=== PATIENT | male | born 1945 | race Caucasian/White ===

== ENCOUNTER 2020-08-03 11:45 | Emergency (ER) | payer MEDICARE, OTHER, SELFPAY ==
[2020-08-03] VITALS (7 sets, daily range): BP systolic 134–165; BP diastolic 58–82; PULSE 50–84; RESP 13–20; TEMP 36.1–36.8; O2SAT 96–100
--- NOTE | ~2020-08-03 | XR_ITS ---
EXAMINATION: XR chest 2V 08/03/2020 12:27 INDICATION: Chest pain. Controlled hypertension. PROCEDURE: PA and lateral views of the chest COMPARISON: Comparison to multiple prior studies sequentially, with oldest reviewed study dated 12/14. FINDINGS: The lungs are clear. The cardiomediastinal silhouette is within normal limits. There are no pleural effusions. There is no pneumothorax suspected. IMPRESSION: 1: NO ACUTE CARDIOPULMONARY DISEASE. Reviewed, dictated and finalized at location A. [employer]
--- NOTE | 2020-08-03 11:53 | ECG_ITS ---
Measurements Intervals [place] Rate: 65 P: 38 SD: 181 QRS: -40 QRSD: 98 T: 31 QT: 427 QTc: 445 Interpretive Statements SINUS RHYTHM ATRIAL AND VENTRICULAR PREMATURE COMPLEXES LEFT AXIS DEVIATION CONSIDER INFERIOR INFARCT, AGE INDETERMINATE BASELINE ARTIFACT- I, II, III, AVR ABNORMAL ECG Electronically Signed On 08-03-2020 16:32:08 GRADE RECORDER by Benitez Gallego D.O.
[2020-08-03 12:10] LABS: Basophils Absolute Auto 0.1 K/mm3 (0.0-0.1); Eosinophils Absolute Auto 0.2 K/mm3 (0-0.3); Hematocrit 39.8 % (42.0-52.0); Hemoglobin 13.1 g/dL (14.0-18.0); Immature Granulocyte Absolute 0.03 K/mm3 (0.00-0.031); Immature Granulocyte Percent A 0.4 % (0-0.5); Lymphocytes Absolute Auto 1.63 K/mm3 (0.9-3.2); Lymphocytes Percent Auto 24.1 % (18.3-44.2); Mean Corpuscular HGB Conc 32.9 g/dl (32-36); Mean Corpuscular Hemoglobin 32.3 pg (26-34); Mean Platelet Volume 12.1 fl (7.4-10.4); Monocytes Absolute Auto 0.7 K/mm3 (0.1-0.6); Neutrophils Absolute Auto 4.1 K/mm3 (1.3-6.7); Neutrophils Percent Auto 60.5 % (45.5-73.1); Platelet Count Result 175 k/mm3 (150-375); Red Blood Count 4.06 M/mm3 (4.6-6.20); Red Cell Distribution Width 12.7 % (11.5-14.5); White Blood Count 6.8 K/mm3 (4.5-10.0)
--- NOTE | 2020-08-03 12:13 | ED.CHESTPAIN ---
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 Denies any sob, abd pain, n/v, diaphoresis, fever or chills. 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 Patient states he had a stress test done last year and it was normal. Related Data Home Medications Medication Instructions Recorded Confirmed Amitiza 24 mcg PO BID 08/03/19 08/03/19 Toujeo SoloStar U-300 Insulin 36 unit SUBCUT HS 08/03/19 08/03/19 amlodipine 10 mg PO DAILY 08/03/19 08/03/19 atorvastatin 40 mg PO HS 08/03/19 08/03/19 escitalopram oxalate [Lexapro] 10 mg PO DAILY 08/03/19 08/03/19 insulin aspart U-100 [Novolog 5 unit SUBCUT QACBREAK 08/03/19 08/03/19 Flexpen U-100 Insulin] insulin aspart U-100 [Novolog 6 unit SUBCUT QACLUNCH 08/03/19 08/03/19 Flexpen U-100 Insulin] insulin aspart U-100 [Novolog 7 unit SUBCUT QACDINNER 08/03/19 08/03/19 Flexpen U-100 Insulin] Allergies Allergy/AdvReac Type Severity Reaction Status Date / Time oxycodone Allergy Mild Rash Verified 08/03/20 11:59 tasneem Allergy Swelling Verified 08/03/20 11:59 of Lip/Tongue/Throat Review of Systems Review of Systems: All systems reviewed & are unremarkable except as noted in HPI and below Constitutional: Constitutional: Denies body ache(s), Denies chills, Denies excessive sweating, Denies fatigue, Denies fever(s), Denies headache(s), Denies lethargy, Denies malaise, Denies weakness and Denies weight loss Eyes: Eyes: Denies blurry vision, Denies change in vision and Denies loss of vision ENT: Denies dizziness, Denies ear discharge, Denies headache(s), Denies lip swelling, Denies epistaxis, Denies nasal congestion, Denies neck pain, Denies throat swelling and Denies tongue swelling Cardiovascular: Cardiovascular: Denies diaphoresis, Denies rapid heart rate, Denies edema, Denies irregular heart rhythm, Denies lightheadedness, Denies palpitations, Denies dyspnea and Denies dyspnea on exertion Respiratory: Respiratory: Denies chest congestion, Denies cough, Denies hemoptysis, Denies dyspnea and Denies dyspnea on exertion Gastrointestinal: Gastrointestinal: Denies abdominal pain, Denies melena, Denies hematochezia, Denies diarrhea, Denies nausea, Denies vomiting and Denies hematemesis Musculoskeletal: Musculoskeletal: Denies abnormal gait, Denies deformity, Denies joint swelling, Denies limited range of motion, Denies neck pain and Denies numbness Neurologic: Denies Abnormal speech present, Denies abnormal gait, Denies confusion, Denies dizziness, Denies headache(s), Denies focal weakness, Denies loss of vision, Denies numbness, Denies Other visual disturbances, Denies Sensory deficit (Neuro) and Denies weakness Psychiatric: Psychiatric: Denies confusion, Denies depression, Denies auditory hallucinations, Denies homicidal ideation and Denies suicidal ideation Endocrine: Endocrine: Denies cold intolerance, Denies excessive sweating, Denies fatigue, Denies heat intolerance and Denies palpitations Hematologic/Lymphatic: Hematologic/Lymphatic: Denies easy bleeding and Denies easy bruising Allergic/Immunologic: Allergic/Immunologic: Denies lip swelling, Denies throat swelling and Denies tongue swelling PMFSH Past Medical History Medical History (Updated 08/03/20 @ 15:37 by Shubham Palacio MD) Anemia Anxiety Bronchitis Dementia With history of evaluation by a neurologist. Symptoms since 2018 Diabetes DVT (deep venous thrombosis) Right lower extremity with associated pulmonary embolism in 2014 Erectile dysfunction GERD (gastroesophageal reflux disease) HTN (hypertension) Hyperlipidemia
[2020-08-03 12:20] LABS: INR 0.9; Prothrombin Time 12.7 Seconds (11.1-14.7)
[2020-08-03 12:21] LABS: Partial Thromboplastin Time 28.1 SECONDS (22.3-36.8)
[2020-08-03 12:22] LABS: Anion Gap 5 mmol/L (8-16); Blood Urea Nitrogen 33 mg/dL (9-20); Calcium 8.9 mg/dL (8.4-10.2); Carbon Dioxide 25 mmol/L (22-30); Chloride 110 mmol/L (98-107); Estimated CRCL calculation 41 ml/min; Estimated Glomerular Filt Rate 43; Glucose 217 mg/dL (75-110); Potassium 4.8 mmol/L (3.4-5.0); Sodium 140 mmol/L (137-145)
[2020-08-03 12:34] LABS: Troponin I 0.014 ng/mL (0.000-0.034)
[2020-08-03] MEDS: ASPIRIN 81 MG CHEWABLE TABLET 324 MG PO (12:40)
[2020-08-03 15:01] LABS: Troponin I < 0.012 ng/mL (0.000-0.034)
== END 2020-08-03 15:55 | disposition home or self-care (01) ==
PROVIDERS: Emergency Medicine; Emergency Provider Emergency Medicine
DX: R07.89 Other chest pain (principal); F03.90 Unspecified dementia, unspecified severity, without behavioral disturbance, psychotic disturbance, mood disturbance, and anxiety; E11.22 Type 2 diabetes mellitus with diabetic chronic kidney disease; I12.9 Hypertensive chronic kidney disease with stage 1 through stage 4 chronic kidney disease, or unspecified chronic kidney disease; N18.30 Chronic kidney disease, stage 3 unspecified; E11.319 Type 2 diabetes mellitus with unspecified diabetic retinopathy without macular edema; K21.9 Gastro-esophageal reflux disease without esophagitis; K58.9 Irritable bowel syndrome, unspecified; F41.9 Anxiety disorder, unspecified; Z86.711 Personal history of pulmonary embolism; Z86.718 Personal history of other venous thrombosis and embolism; Z79.4 Long term (current) use of insulin; Z98.42 Cataract extraction status, left eye; Z98.41 Cataract extraction status, right eye; I49.1 Atrial premature depolarization; I49.3 Ventricular premature depolarization; R94.31 Abnormal electrocardiogram [ECG] [EKG]
CPT/HCPCS: 36415; 71046; 80048; 84484; 85025; 85610; 85730; 93005; 99284; A9270

== ENCOUNTER 2021-01-20 12:53 | Outpatient (CLI) | payer MEDICARE, OTHER, SELFPAY ==
--- NOTE | ~2021-01-20 | US_ITS ---
EXAMINATION: US carotid duplex BI DATE: 01/20/2021 14:19 INDICATION: Syncope. TECHNIQUE: Grayscale, color Doppler, and pulsed Doppler images of the cervical carotid arteries were obtained. The degree of vessel stenosis is placed in one of the following categories: normal, <50%, 5 0-69%, >=70% but less than near-occlusion, near-occlusion, or total occlusion. Note that percent sten osis relative to normal distal artery lumen diameter is indirectly measured from velocity measurement s as described by Inder, et al. Radiology 2003; 229:340-346. COMPARISON: Ultrasound 10/24/2008 FINDINGS: RIGHT: The right common carotid artery (CCA) peak systolic velocity (PSV) is 108 cm/s. The right internal ca rotid artery (ICA) PSV is 74 cm/s. The right ICA end-diastolic velocity (EDV) is 10 cm/s. The right I CA/CCA PSV ratio is 0.7. Grayscale and color Doppler images yield an estimate of <50% diameter reduct ion from plaque in the ICA. There is antegrade flow in the right vertebral artery. LEFT: The left CCA PSV is 114 cm/s. The left ICA PSV is 85 cm/s. The left ICA EDV is 11 cm/s. The left ICA/ CCA PSV ratio is 0.7. Grayscale and color Doppler images yield an estimate of <50% diameter reduction from plaque in the ICA. There is antegrade flow in the left vertebral artery. IMPRESSION: 1. <50% stenosis in the right internal carotid artery. 2. <50% stenosis in the left internal carotid artery. Reviewed, dictated and finalized at location A.
--- NOTE | ~2021-01-20 | MR_ITS ---
EXAMINATION: MRA brain wo con DATE: 01/20/2021 14:16 INDICATION: Syncope and collapse. TECHNIQUE: Magnetic resonance angiography (MRA) of the brain was performed without intravenous contra st with T1-weighted SPGR by the 3D [id number] technique. Maximum intensity projection 3D-reconstr uctions were obtained. COMPARISON: Brain MRI 01/28/2016, head CT 08/03/2019 FINDINGS: The vertebral arteries are codominant. There is no significant stenosis of basilar artery or the post erior cerebral arteries. Right P1 posterior cerebral artery segment is small, a normal variant. The p osterior communicating arteries are normal. There is no significant stenosis of the intracranial inte rnal carotid arteries or anterior or middle cerebral arteries. Anterior communicating artery is [place]. There is no aneurysm. IMPRESSION: 1. No aneurysm or significant arterial stenosis. Reviewed, dictated and finalized at location A.
== END 2021-01-20 12:54 | disposition home or self-care (01) ==
LOC: ANHIMG 12:59
PROVIDERS: PCP Emergency Medicine; Visit Provider Emergency Medicine
DX: R55 Syncope and collapse (principal); I65.23 Occlusion and stenosis of bilateral carotid arteries
CPT/HCPCS: 70544; 93880

== ENCOUNTER 2021-03-04 06:53 | Day surgery (SDC) | payer MEDICARE, OTHER, SELFPAY ==
[2021-02-19 13:12] VITALS: BMI 22.1
[2021-03-04 07:50] VITALS: BP 95/58; PULSE 61; RESP 18; TEMP 35.9; O2SAT 99; BMI 22.4
--- NOTE | 2021-03-04 07:53 | WPDANESEPPF ---
Anes - Initial Pre Proc Eval Procedure: Operation Date: 03/04/21 08:30 Proposed Procedures p Esophagogastroduodenoscopy & Colonoscopy - Umesh Golden MD Date/Time: 03/04/21 07:53 Surgeon: Umesh Golden MD Pre Op Diagnosis: weightloss, frank's esophagus Patient Data Age: 75 Gender: M Height: 1.83 m Weight: 74.9 kg Last Vital Signs Temp 35.9 C L 03/04/21 07:50 Pulse 61 03/04/21 07:50 Resp 18 03/04/21 07:50 BP 95/58 L 03/04/21 07:50 Pulse Ox 99 03/04/21 07:50 Allergies Allergy/AdvReac Type Severity Reaction Status Date / Time oxycodone Allergy Mild Rash Verified 03/04/21 07:48 tasneem Allergy Swelling Verified 03/04/21 07:48 of Lip/Tongue/Throat Home Medications Medication Instructions Recorded Confirmed Type Toujeo SoloStar U-300 Insulin 32 unit SUBCUT HS 08/03/19 03/04/21 History amlodipine 10 mg PO DAILY 08/03/19 03/04/21 History atorvastatin 40 mg PO HS 08/03/19 03/04/21 History escitalopram oxalate [Lexapro] 20 mg PO DAILY 08/03/19 03/04/21 History insulin aspart U-100 [Novolog 5 unit SUBCUT QACBREAK 08/03/19 03/04/21 History Flexpen U-100 Insulin] insulin aspart U-100 [Novolog 6 unit SUBCUT QACLUNCH 08/03/19 03/04/21 History Flexpen U-100 Insulin] insulin aspart U-100 [Novolog 7 unit SUBCUT QACDINNER 08/03/19 03/04/21 History Flexpen U-100 Insulin] lubiprostone [Amitiza] 24 mcg PO BID 08/03/19 03/04/21 History pantoprazole 40 mg PO DAILY 02/19/21 03/04/21 History patiromer calcium sorbitex 8.4 g PO DAILY 02/19/21 03/04/21 History Patient hx anesthesia problems: none Family hx anesthesia problems: none PMFSH Past Medical History Medical History Anemia Anxiety Bronchitis Dementia With history of evaluation by a neurologist. Symptoms since 2018 Diabetes DVT (deep venous thrombosis) Right lower extremity with associated pulmonary embolism in 2013 Erectile dysfunction GERD (gastroesophageal reflux disease) HTN (hypertension) Hyperlipidemia IBS (irritable bowel syndrome) Pulmonary embolism 2014 Retinopathy diabetic Stage 3 chronic kidney disease Surgical History Surgical History H/O bilateral cataract extraction H/O left wrist surgery 1996 H/O repair of left rotator cuff History of surgical procedure on eye proper using laser For diabetic retinopathy Family History Family History Sibling Family history of obesity Father Depression Hypertension Hearing loss Seizure disorder Acute myocardial infarction Late onset coronary artery disease Mother Hypertension Cerebrovascular accident Congestive heart failure Social History Social History Social History: 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 He lives in [place] with his . He occasionally will drink beer but only in moderation. He is a lifelong nonsmoker. He has 3 dogs at home. [place] about once per week. Primary care physician: [facility] Code status: Full code per EMR Smoking status: Never smoker Second hand tobacco smoke exposure: No Alcohol intake: never Drinks per week: 1 Substance use: never Substance use type: does not use Living arrangements: with family Gender identity (if verbalized by the patient): Male Spiritual care concerns: No Anes - Eval Final PreProcedure Day of Procedure 03/04/21 07:53 Patient weight: normal Heart: regular rate and rhythm Lungs: clear to auscultation Airway: Mallampati scale class II Neurological: alert and oriented Last oral intake: >/= 8 hours ASA classification: III Emergent: no Anesthetic plan: proceed Anesthesia type and monitoring: general GIVS and standard monitorin
[2021-03-04] MEDS: LACTATED RINGERS 1,000 ML 150 ML IV CONT (08:18)
--- NOTE | 2021-03-04 08:24 | PM.HPGS ---
History of Present Illness History of Present Illness Consent: Risks, benefits, and alternatives have been discussed and questions answered. Patient agrees to proceed with procedure. 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 Review of Systems Constitutional: Constitutional: Denies headache(s) and Denies weakness Eyes: Eyes: Denies blurry vision ENT: Reports Normal hearing present, Denies headache(s) and Denies neck pain Cardiovascular: Cardiovascular: Denies chest pain and Denies dyspnea Respiratory: Respiratory: Denies dyspnea Gastrointestinal: Gastrointestinal: Reports no additional gastrointestinal complaints Genitourinary: Genitourinary: Denies dysuria Musculoskeletal: Musculoskeletal: Denies neck pain Integumentary/Breasts: Skin/Breast: Denies dry skin Neurologic: Reports Normal hearing present, Denies headache(s) and Denies weakness Psychiatric: Psychiatric: Denies anxiety Endocrine: Endocrine: Denies change in body appearance Hematologic/Lymphatic: Hematologic/Lymphatic: Denies easy bleeding Allergic/Immunologic: Allergic/Immunologic: Denies urticaria PMFSH Past Medical History Medical History (Updated 03/04/21 @ 08:25 by Umesh Golden MD) Anemia Anxiety Frank esophagus Bronchitis Colon cancer screening Dementia With history of evaluation by a neurologist. Symptoms since 2018 Diabetes DVT (deep venous thrombosis) Right lower extremity with associated pulmonary embolism in 2013 Erectile dysfunction GERD (gastroesophageal reflux disease) HTN (hypertension) Hyperlipidemia IBS (irritable bowel syndrome) Pulmonary embolism 2013 Retinopathy diabetic Stage 3 chronic kidney disease Surgical History Surgical History H/O bilateral cataract extraction H/O left wrist surgery 1996 H/O repair of left rotator cuff History of surgical procedure on eye proper using laser For diabetic retinopathy Family History Family History Sibling Family history of obesity Father Depression Hypertension Hearing loss Seizure disorder Acute myocardial infarction Late onset coronary artery disease Mother Hypertension Cerebrovascular accident Congestive heart failure Social History Social History Social History: 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 He lives in [place] with his . He occasionally will drink beer but only in moderation. He is a lifelong nonsmoker. He has 3 dogs at home. [place] and [place] about once per week. Primary care physician: [facility] Code status: Full code per EMR Smoking status: Never smoker Second hand tobacco smoke exposure: No Alcohol intake: never Drinks per week: 1 Substance use: never Substance use type: does not use Living arrangements: with family Gender identity (if verbalized by the patient): Male Spiritual care concerns: No Meds Home Medications and Allergies Home Medications Medication Instructions Recorded Confirmed Type Toujeo SoloStar U-300 Insulin 32 unit SUBCUT HS 08/03/19 03/04/21 History amlodipine 10 mg PO DAILY 08/03/19 03/04/21 History atorvastatin 40 mg PO HS 08/03/19 03/04/21 History escitalopram oxalate [Lexapro] 20 mg PO DAILY 08/03/19 03/04/21 History insulin aspart U-100 [Novolog 5 unit SUBCUT QACBREAK 08/03/19 03/04/21 History Flexpen U-100 Insulin] insulin aspart U-100 [Novolog 6 unit SUBCUT QACLUNCH 08/03/19 03/04/21 History Flexpen U-100 Insulin] insulin aspart U-100 [Novolog 7 unit SUBCUT QACDINNER 08/03/19 03/04/21 History Flexpen U-100 Insulin] lubiprostone [Amitiza
--- NOTE | 2021-03-04 08:40 | SUR.OPER ---
EGD ENDED 835 COLON STARTED 839
[2021-03-04 09:01] VITALS: BP 85/38; PULSE 47; RESP 12; O2SAT 99
[2021-03-04 09:11] VITALS: BP 101/45; PULSE 51; RESP 17; O2SAT 99
[2021-03-04 09:21] VITALS: BP 122/72; PULSE 59; RESP 16; O2SAT 99
--- NOTE | 2021-03-04 10:01 | SUR.PHASEII ---
prior to discharge. Blood glucose 139mg/dl per pt's dexacom.
== END 2021-03-04 09:41 | disposition home or self-care (01) ==
PROVIDERS: PCP Emergency Medicine; Visit Provider Internal Medicine Gastroenterology
PROC: 0DJ08ZZ Inspection of Upper Intestinal Tract, Via Natural or Artificial Opening Endoscopic (ICD-10-PCS; CPT 43235; principal; 2021-03-04 08:30)
DX: Z12.11 Encounter for screening for malignant neoplasm of colon (principal); K63.5 Polyp of colon; K22.70 Barrett's esophagus without dysplasia; K21.00 Gastro-esophageal reflux disease with esophagitis, without bleeding; Z79.4 Long term (current) use of insulin; F03.90 Unspecified dementia, unspecified severity, without behavioral disturbance, psychotic disturbance, mood disturbance, and anxiety; E78.5 Hyperlipidemia, unspecified; D64.9 Anemia, unspecified; F41.9 Anxiety disorder, unspecified; K58.9 Irritable bowel syndrome, unspecified; I12.9 Hypertensive chronic kidney disease with stage 1 through stage 4 chronic kidney disease, or unspecified chronic kidney disease; N18.30 Chronic kidney disease, stage 3 unspecified; E11.22 Type 2 diabetes mellitus with diabetic chronic kidney disease; E11.319 Type 2 diabetes mellitus with unspecified diabetic retinopathy without macular edema
CPT/HCPCS: 45385; 43239; 88305; J2704; J7120

== ENCOUNTER 2022-01-05 16:24 | Emergency (ER) | payer MEDICARE, OTHER, SELFPAY ==
--- NOTE | ~2022-01-05 | XR_ITS ---
EXAMINATION: XR chest 1V portable Exam Date/Time: 01/05/2022 17:00 CDT HISTORY: covid+,WEAKNESS,CONFUSION,HIGH BLOOD SUGAR,HX DVT,PE Comparison: 08/03/2020. RESULT: Lines, tubes, and devices: None. Lungs and pleura: Low volumes and crowding. Cardiomediastinal silhouette: Stable cardiomediastinal silhouette. Other: No acute osseous or upper abdominal finding. IMPRESSION: No acute cardiopulmonary process. Reviewed, dictated and finalized at location K.
[2022-01-05 16:23] VITALS: BP 141/72; PULSE 58; RESP 18; TEMP 37.1; O2SAT 97
[2022-01-05 16:30] VITALS: PULSE 54
[2022-01-05 16:32] VITALS: BP 140/64; PULSE 53; RESP 14
[2022-01-05 16:32] LABS: Glucose Point of Care 162 mg/dl (65-105)
--- NOTE | 2022-01-05 16:39 | ED.GENADULT ---
HPI - General Adult General Chief complaint: Weakness Stated complaint: weakness, fever Time Seen by Provider: 01/05/22 16:27 History of Present Illness HPI narrative: sent in by b/c worried abut him due to kidney stage 3 disease potassium issues alzheimers and then took a covid test today b/c wouldn't get up for golf game today which he's very active and normally never misses this and little less active last night mild fever 100.4 today home test positive, no eating minimal fluids today and in bed all day. at wedding recently familly sick from that covid positive. covid and flu vaccine no booster b/c after vaccine speech and walking issues so concerned from the vaccine Related Data Home Medications Medication Instructions Recorded Confirmed amlodipine 10 mg tablet 10 mg PO DAILY 08/03/19 03/04/21 atorvastatin 40 mg tablet 40 mg PO HS 08/03/19 03/04/21 escitalopram oxalate 10 mg tablet 10 mg PO DAILY 08/03/19 03/04/21 (Lexapro) insulin aspart U-100 100 unit/mL 5 unit subcut QACBREAK 08/03/19 03/04/21 (3 mL) subcutaneous pen (Novolog Flexpen U-100 Insulin aspart) insulin aspart U-100 100 unit/mL 6 unit subcut QACLUNCH 08/03/19 03/04/21 (3 mL) subcutaneous pen (Novolog Flexpen U-100 Insulin aspart) insulin aspart U-100 100 unit/mL 7 unit subcut QACDINNER 08/03/19 03/04/21 (3 mL) subcutaneous pen (Novolog Flexpen U-100 Insulin aspart) insulin glargine U-300 conc 300 32 unit subcut HS 08/03/19 03/04/21 unit/mL (1.5 mL) subcutaneous pen (Toujeo SoloStar U-300 Insulin) lubiprostone 24 mcg capsule 24 mcg PO BID 08/03/19 03/04/21 (Amitiza) pantoprazole 40 mg tablet,delayed 40 mg PO DAILY 02/19/21 03/04/21 release patiromer calcium sorbitex 8.4 8.4 g PO DAILY 02/19/21 03/04/21 gram oral powder packet donepezil 5 mg tablet tablet 01/05/22 fluticasone propionate 50 ea intranasal 01/05/22 mcg/actuation nasal spray,suspension Allergies Allergy/AdvReac Type Severity Reaction Status Date / Time oxycodone Allergy Mild Rash Verified 03/04/21 07:48 tasneem Allergy Swelling Verified 03/04/21 07:48 of Lip/Tongue/Throat PMFSH Past Medical History Medical History (Updated 01/05/22 @ 18:17 by Shira Wagner MD) Anemia Anxiety Stewart esophagus Bronchitis Colon cancer screening Dementia With history of evaluation by a neurologist. Symptoms since 2017 Diabetes DVT (deep venous thrombosis) Right lower extremity with associated pulmonary embolism in 2013 Erectile dysfunction GERD (gastroesophageal reflux disease) HTN (hypertension) Hyperlipidemia IBS (irritable bowel syndrome) Pulmonary embolism 2013 Retinopathy diabetic Stage 3 chronic kidney disease Surgical History Surgical History H/O bilateral cataract extraction H/O left wrist surgery 1996 H/O repair of left rotator cuff History of surgical procedure on eye proper using laser For diabetic retinopathy Family History Family History Sibling Family history of obesity Father Depression Hypertension Hearing loss Seizure disorder Acute myocardial infarction Late onset coronary artery disease Mother Hypertension Cerebrovascular accident Congestive heart failure Social History Social History Social History: 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 He lives in [place] with his . He occasionally will drink beer but only in moderation. He is a lifelong nonsmoker. He has 3 dogs at home. [place] and [place] about once per week. Primary care physician: [facility] Code status: Full code per EMR Smoking status: Never smoker Second hand tobacco smoke exposure: No Alcohol intake: never Drinks per week: 1 Substance use: never Substance use type: does
[2022-01-05] MEDS: SODIUM CHLORIDE 0.9% IV 1,000 ML 150 ML IV CONT (16:55)
[2022-01-05 17:32] VITALS: BP 155/62; PULSE 55; RESP 18
[2022-01-05 17:41] LABS: Basophils Absolute Auto 0.1 K/mm3 (0.0-0.1); Basophils Percent Auto 1.1 % (0.2-1.2); Eosinophils Absolute Auto 0.1 K/mm3 (0-0.3); Eosinophils Percent Auto 1.4 % (0-4.4); Hematocrit 34.3 % (42.0-52.0); Hemoglobin 11.5 g/dL (14.0-18.0); Immature Granulocyte Absolute 0.01 K/mm3 (0.00-0.031); Immature Granulocyte Percent A 0.2 % (0-0.5); Immature Platelet Fraction Pct 5.1 % (0.9-11.2); Lymphocytes Absolute Auto 0.73 K/mm3 (0.9-3.2); Lymphocytes Percent Auto 16.8 % (18.3-44.2); Mean Corpuscular HGB Conc 33.5 g/dl (32-36); Mean Corpuscular Volume 98.3 fl (80-100); Mean Platelet Volume 11.4 fl (7.4-10.4); Monocytes Absolute Auto 1.1 K/mm3 (0.1-0.6); Monocytes Percent Auto 26.2 % (2.6-8.5); Neutrophils Absolute Auto 2.4 K/mm3 (1.3-6.7); Neutrophils Percent Auto 54.3 % (45.5-73.1); Platelet Count Result 137 k/mm3 (150-375); Red Blood Count 3.49 M/mm3 (4.6-6.20); Red Cell Distribution Width 12.5 % (11.5-14.5); White Blood Count 4.4 K/mm3 (4.5-10.0)
[2022-01-05 17:50] LABS: Influenza A QL RT-PCR Negative (Negative); Influenza B QL RT-PCR Negative (Negative); SARS-CoV-2 RNA PCR Positive
[2022-01-05 17:57] LABS: Alanine Aminotransferase 19 U/L (6-50); Albumin Level 3.5 g/dL (3.5-5.1); Alkaline Phosphatase 87 U/L (38-126); Anion Gap 3 mmol/L (8-16); Aspartate Amino Transferase 24 U/L (17-59); Bilirubin,Total 0.7 mg/dL (0.2-1.3); Blood Urea Nitrogen 33 mg/dL (9-20); Carbon Dioxide 24 mmol/L (22-30); Chloride 109 mmol/L (98-107); Estimated CRCL calculation 33 ml/min; Estimated Glomerular Filt Rate 37; Glucose 176 mg/dL (65-110); Magnesium 1.6 mg/dL (1.6-2.3); Potassium 4.8 mmol/L (3.4-5.0); Sodium 136 mmol/L (137-145)
[2022-01-05 18:29] LABS: Appearance Urine Clear (Clear); Bilirubin Urine Negative (Negative); Blood Urine 1+ (Negative); Color Urine Yellow (Yellow); Glucose Urine UA Trace mg/dL (Negative); Ketones Urine Negative (Negative); Leukocyte Esterase Ur Negative LEU/UL (Negative); Nitrate Urine Negative (Negative); Protein Urine 2+ mg/dL (Negative); Specific Grav Ur 1.015 (1.001-1.035); Urobilinogen Urine 0.2 mg/dL (<2.0); pH Urine 5.5 (5.0-9.0)
[2022-01-05 18:50] LABS: Add Urine Microscopic? YES; RBC Urine 0-2 /hpf (0-2); Squamous Epithelial Cell Urine Rare /hpf (Few); WBC Urine 0-3 /hpf
[2022-01-05 19:10] VITALS: BP 154/70; PULSE 60; RESP 16; O2SAT 97
[2022-01-05 19:14] VITALS: BP 157/59
== END 2022-01-05 19:10 | disposition home or self-care (01) ==
PROVIDERS: Emergency Provider Emergency Medicine; PCP Emergency Medicine
DX: U07.1 COVID-19 (principal); E11.22 Type 2 diabetes mellitus with diabetic chronic kidney disease; I12.9 Hypertensive chronic kidney disease with stage 1 through stage 4 chronic kidney disease, or unspecified chronic kidney disease; N18.30 Chronic kidney disease, stage 3 unspecified; E11.319 Type 2 diabetes mellitus with unspecified diabetic retinopathy without macular edema; D64.9 Anemia, unspecified; G30.9 Alzheimer's disease, unspecified; F02.80 Dementia in other diseases classified elsewhere, unspecified severity, without behavioral disturbance, psychotic disturbance, mood disturbance, and anxiety; E78.5 Hyperlipidemia, unspecified; K21.9 Gastro-esophageal reflux disease without esophagitis; K58.9 Irritable bowel syndrome, unspecified; Z86.718 Personal history of other venous thrombosis and embolism; Z86.711 Personal history of pulmonary embolism; Z79.4 Long term (current) use of insulin
CPT/HCPCS: 36415; 71045; 80053; 81001; 82948; 83735; 85025; 85055; 87502; 96360; 96361; 99283; C9803; J7030; U0003; U0005

== ENCOUNTER 2022-01-07 10:14 | Outpatient (RCR) | payer MEDICARE, OTHER, SELFPAY ==
[2022-01-07 12:34] VITALS: BP 137/64; PULSE 48; RESP 20; TEMP 36.2; O2SAT 99
[2022-01-07] MEDS: ACETAMINOPHEN 325 MG TABLET 650 MG PO (12:37)
[2022-01-07] MEDS: diphenhydrAMINE HCl CAP 25 MG CAPSULE PO (12:37)
[2022-01-07] MEDS: FAMOTIDINE 20 MG TABLET PO (12:37)
[2022-01-07] MEDS: BEBTELOVIMAB 175 MG/2 ML VIAL IV PUSH (12:56)
[2022-01-07 13:40] VITALS: BP 123/60; PULSE 60; O2SAT 100
== END 2022-01-07 16:00 ==
LOC: AMCINF 10:14
PROVIDERS: Referring Provider Emergency Medicine; Visit Provider Internal Medicine Hematology & Oncology
DX: U07.1 COVID-19 (principal); I12.9 Hypertensive chronic kidney disease with stage 1 through stage 4 chronic kidney disease, or unspecified chronic kidney disease; N18.9 Chronic kidney disease, unspecified; E11.22 Type 2 diabetes mellitus with diabetic chronic kidney disease
CPT/HCPCS: A9270; M0222; Q0222

== ENCOUNTER 2022-09-10 14:30 | Emergency (ER) | payer MEDICARE, OTHER, SELFPAY ==
[2022-09-10 14:40] VITALS: BP 149/70; PULSE 59; RESP 16; TEMP 36.6; O2SAT 100
--- NOTE | 2022-09-10 14:40 | ED.URI ---
HPI - URI/Sore Throat General Chief Complaint: Upper Respiratory Infection Stated Complaint: COUGH/CONGESTION Time Seen by Provider: 09/10/22 14:40 Source: patient, family, RN notes reviewed and old records reviewed Mode of arrival: ambulatory Limitations: no limitations History of Present Illness HPI Narrative: 76 year old male accompanied by with complaints of patient having cold symptoms on Tuesday which has resolved except for productive cough with expectoration of thick white mucous for the past 3 days. states that patient has not had fevers. She states that they did home Covid test which was negative. Patient reports no pain, denies any shortness of breath with respirations even and nonlabored no tachypnea noted with SAO2 100% on room air. Patient does have dementia and cares fo him at home.She has been giving him some Robitussin cough syrup. MD elicited complaint: cough (productive) and rhinorrhea Onset (ago): day(s) (3) Able to tolerate fluids by mouth: Yes Treatments prior to arrival: other (Robitussin and some nasal saline swabs) Related Data Home Medications Medication Instructions Recorded Confirmed amlodipine 10 mg tablet 10 mg PO DAILY 08/03/19 09/10/22 atorvastatin 40 mg tablet 40 mg PO HS 08/03/19 09/10/22 escitalopram oxalate 10 mg tablet 10 mg PO DAILY 08/03/19 09/10/22 (Lexapro) insulin aspart U-100 100 unit/mL 5 unit subcut QACBREAK 08/03/19 09/10/22 (3 mL) subcutaneous pen (Novolog FlexPen U-100 Insulin aspart) insulin aspart U-100 100 unit/mL 6 unit subcut QACLUNCH 08/03/19 09/10/22 (3 mL) subcutaneous pen (Novolog FlexPen U-100 Insulin aspart) insulin aspart U-100 100 unit/mL 7 unit subcut QACDINNER 08/03/19 09/10/22 (3 mL) subcutaneous pen (Novolog FlexPen U-100 Insulin aspart) insulin glargine U-300 conc 300 32 unit subcut HS 08/03/19 09/10/22 unit/mL (1.5 mL) subcutaneous pen (Toujeo SoloStar U-300 Insulin) pantoprazole 40 mg tablet,delayed 40 mg PO DAILY 02/19/21 09/10/22 release Allergies Allergy/AdvReac Type Severity Reaction Status Date / Time oxycodone Allergy Mild Rash Verified 01/07/22 12:35 tasneem Allergy Swelling Verified 01/07/22 12:35 of Lip/Tongue/Throat Review of Systems Review of Systems: CONSTITUTIONAL: Denies malaise, chills, sweats, or fever. EYES: Denies visual changes, redness, or discharge. ENT: Reports some rhinorrhea, congestion, no sinus pain, otalgia or sore throat. CARDIOVASCULAR: Denies chest pain, palpitations, or edema. RESPIRATORY: Reports productive cough.? Denies dyspnea. GASTROINTESTINAL: Denies abdominal pain, nausea, vomiting, diarrhea SKIN: Denies rash or itching. MUSCULOSKELETAL: Denies myalgia. NEUROLOGIC: Denies headache. All systems reviewed & are unremarkable except as noted in HPI and below PMFSH Past Medical History Medical History Anemia Anxiety Stewart esophagus Bronchitis Colon cancer screening Dementia With history of evaluation by a neurologist. Symptoms since 2018 Diabetes DVT (deep venous thrombosis) Right lower extremity with associated pulmonary embolism in 2013 Erectile dysfunction GERD (gastroesophageal reflux disease) HTN (hypertension) Hyperlipidemia IBS (irritable bowel syndrome) Pulmonary embolism 2014 Retinopathy diabetic Stage 3 chronic kidney disease Surgical History Surgical History H/O bilateral cataract extraction H/O left wrist surgery 1996 H/O repair of left rotator cuff History of surgical procedure on eye proper using laser For diabetic retinopathy Family History Family History Sibling Family history of obesity Father Depression Hypertension Hearing loss Seizure disorder Acute myocardial infarction Late onset coronary artery disease Mother Hypertension
[2022-09-10 14:41] VITALS: BP 149/70; PULSE 59; RESP 16; TEMP 36.6; O2SAT 100
== END 2022-09-10 15:00 | disposition home or self-care (01) ==
PROVIDERS: Emergency Provider Registered Nurse; PCP Emergency Medicine
DX: J06.9 Acute upper respiratory infection, unspecified (principal); K21.9 Gastro-esophageal reflux disease without esophagitis; E78.5 Hyperlipidemia, unspecified; I12.9 Hypertensive chronic kidney disease with stage 1 through stage 4 chronic kidney disease, or unspecified chronic kidney disease; E11.22 Type 2 diabetes mellitus with diabetic chronic kidney disease; N18.30 Chronic kidney disease, stage 3 unspecified; Z79.4 Long term (current) use of insulin; K22.70 Barrett's esophagus without dysplasia; F03.90 Unspecified dementia, unspecified severity, without behavioral disturbance, psychotic disturbance, mood disturbance, and anxiety; Z86.718 Personal history of other venous thrombosis and embolism; Z86.711 Personal history of pulmonary embolism; E11.319 Type 2 diabetes mellitus with unspecified diabetic retinopathy without macular edema; Z98.42 Cataract extraction status, left eye; Z98.41 Cataract extraction status, right eye; F41.9 Anxiety disorder, unspecified
CPT/HCPCS: 99213; G0463

== ENCOUNTER 2023-02-05 12:18 | Emergency (ER) | payer MEDICARE, OTHER, SELFPAY ==
--- NOTE | ~2023-02-05 | XR_ITS ---
XR finger 1st RT min 2V DATE: 02/05/2023 12:48 INDICATION: Thumb laceration TECHNIQUE: 3 views COMPARISON: None FINDINGS: No soft tissue bandage material overlies the right first digit. No radiopaque soft tissue f oreign body or obvious subcutaneous emphysema is noted. No fracture, dislocation, periosteal reaction or bone destruction is detected. First metatarsal artery calcification, suggesting diabetes. 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 IMPRESSION: No fracture or dislocation or apparent radiopaque foreign body of the right first digit First metatarsal artery calcifications suggesting diabetes Reviewed, dictated and finalized at location A. IMPRESSION: No fracture or dislocation or apparent radiopaque foreign body of t he right first digit First metatarsal artery calcifications suggesting diabetes
[2023-02-05 12:27] VITALS: BP 130/72; PULSE 59; RESP 18; TEMP 36.6; O2SAT 100
--- NOTE | 2023-02-05 13:19 | ED.GENADULT ---
HPI - General Adult General Chief complaint: Wound/Laceration Stated complaint: thumb lac Time Seen by Provider: 02/05/23 12:36 History of Present Illness HPI narrative: 77-year-old male with history of dementia presented to the emergency department for evaluation of lacerations to his right thumb. Patient suspects that he was trying to get something in the mailbox and cut his thumb. Patient's tetanus is not up-to-date. Patient denies any other pain or injury. Related Data Home Medications Medication Instructions Recorded Confirmed amlodipine 10 mg tablet 10 mg PO DAILY 08/03/19 09/10/22 atorvastatin 40 mg tablet 40 mg PO HS 08/03/19 09/10/22 escitalopram oxalate 10 mg tablet 10 mg PO DAILY 08/03/19 09/10/22 (Lexapro) insulin aspart U-100 100 unit/mL 5 unit subcut QACBREAK 08/03/19 09/10/22 (3 mL) subcutaneous pen (Novolog FlexPen U-100 Insulin aspart) insulin aspart U-100 100 unit/mL 6 unit subcut QACLUNCH 08/03/19 09/10/22 (3 mL) subcutaneous pen (Novolog FlexPen U-100 Insulin aspart) insulin aspart U-100 100 unit/mL 7 unit subcut QACDINNER 08/03/19 09/10/22 (3 mL) subcutaneous pen (Novolog FlexPen U-100 Insulin aspart) insulin glargine U-300 conc 300 32 unit subcut HS 08/03/19 09/10/22 unit/mL (1.5 mL) subcutaneous pen (Toujeo SoloStar U-300 Insulin) pantoprazole 40 mg tablet,delayed 40 mg PO DAILY 02/19/21 09/10/22 release Allergies Allergy/AdvReac Type Severity Reaction Status Date / Time oxycodone Allergy Mild Rash Verified 02/05/23 12:47 tasneem Allergy Swelling Verified 02/05/23 12:47 of Lip/Tongue/Throat Review of Systems Review of Systems: All systems reviewed & are unremarkable except as noted in HPI and below PMFSH Past Medical History Medical History Anemia Anxiety Stewart esophagus Bronchitis Colon cancer screening Dementia With history of evaluation by a neurologist. Symptoms since 2018 Diabetes DVT (deep venous thrombosis) Right lower extremity with associated pulmonary embolism in 2014 Erectile dysfunction GERD (gastroesophageal reflux disease) HTN (hypertension) Hyperlipidemia IBS (irritable bowel syndrome) Pulmonary embolism 2014 Retinopathy diabetic Stage 3 chronic kidney disease Surgical History Surgical History H/O bilateral cataract extraction H/O left wrist surgery 1996 H/O repair of left rotator cuff History of surgical procedure on eye proper using laser For diabetic retinopathy Family History Family History Sibling Family history of obesity Father Depression Hypertension Hearing loss Seizure disorder Acute myocardial infarction Late onset coronary artery disease Mother Hypertension Cerebrovascular accident Congestive heart failure Social History Social History Social History: 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 He lives in [place] with his . He occasionally will drink beer but only in moderation. He is a lifelong nonsmoker. He has 3 dogs at home. [place] and [place] about once per week. Primary care physician: [facility] Code status: Full code per EMR Smoking status: Never smoker Second hand tobacco smoke exposure: No Alcohol intake: never Drinks per week: 1 Substance use: never Substance use type: does not use Living arrangements: with family Gender identity (if verbalized by the patient): Male Spiritual care concerns: No Exam Narrative: CONSTITUTIONAL: Denies fever, chills, or sweats. EYES: Denies visual changes, redness, or discharge. ENT: Denies rhinorrhea, congestion, sore throat, or otalgia. CARDIOVASCULAR: Denies chest pain, palpitations, or edema. RESPIRATORY: De
[2023-02-05] MEDS: TETANUS,DIPHTHERIA,AC PERTUSSIS ADULT (0.5 ML) BOOSTRIX IM (13:29)
[2023-02-05 13:32] VITALS: PULSE 57; RESP 17; O2SAT 99
== END 2023-02-05 13:33 | disposition home or self-care (01) ==
PROVIDERS: Emergency Provider Emergency Medicine; PCP Emergency Medicine
DX: S61.011A Laceration without foreign body of right thumb without damage to nail, initial encounter (principal); F03.90 Unspecified dementia, unspecified severity, without behavioral disturbance, psychotic disturbance, mood disturbance, and anxiety; E78.5 Hyperlipidemia, unspecified; I12.9 Hypertensive chronic kidney disease with stage 1 through stage 4 chronic kidney disease, or unspecified chronic kidney disease; E11.22 Type 2 diabetes mellitus with diabetic chronic kidney disease; N18.30 Chronic kidney disease, stage 3 unspecified; Z23 Encounter for immunization; W26.8XXA Contact with other sharp object(s), not elsewhere classified, initial encounter
CPT/HCPCS: 12001; 73140; 90471; 90715; 99283

== ENCOUNTER 2023-03-31 21:07 | Emergency (ER) | payer MEDICARE, OTHER, SELFPAY ==
[2023-03-31] VITALS (8 sets, daily range): BP systolic 166–182; BP diastolic 66–146; PULSE 54–91; RESP 14–20; TEMP 36.6; O2SAT 95–100
[2023-03-31 21:21] LABS: Glucose Point of Care 395 mg/dl (65-105)
--- NOTE | 2023-03-31 22:26 | ECG_ITS ---
Measurements Intervals [place] Rate: 55 P: 67 MO: 237 QRS: -37 QRSD: 90 T: 1 QT: 441 QTc: 422 Interpretive Statements SINUS BRADYCARDIA WITH FIRST DEGREE AV BLOCK LEFT AXIS DEVIATION BORDERLINE R WAVE PROGRESSION, ANTERIOR LEADS BORDERLINE T WAVE ABNORMALITY- INFERIOR LEADS BASELINE ARTIFACT- V4-V6 BORDERLINE ECG COMPARED TO ECG 08/03/2020 11:52:39 SINUS BRADYCARDIA NOW PRESENT FIRST DEGREE AV BLOCK NOW PRESENT Electronically Signed On 04-01-2023 6:58:07 CDT by Benitez Gallego D.O.
[2023-03-31] MEDS: SODIUM CHLORIDE 0.9% IV 2,000 ML 999 ML IV CONT (22:35)
[2023-03-31 22:47] LABS: Basophils Absolute Auto 0.1 K/mm3 (0.0-0.1); Basophils Percent Auto 1.3 % (0.2-1.2); Eosinophils Absolute Auto 0.3 K/mm3 (0-0.3); Eosinophils Percent Auto 3.9 % (0-4.4); Hematocrit 31.6 % (42.0-52.0); Hemoglobin 10.6 g/dL (14.0-18.0); Immature Granulocyte Absolute 0.01 K/mm3 (0.00-0.031); Immature Granulocyte Percent A 0.2 % (0-0.5); Lymphocytes Absolute Auto 1.49 K/mm3 (0.9-3.2); Lymphocytes Percent Auto 23.5 % (18.3-44.2); Mean Corpuscular HGB Conc 33.5 g/dl (32-36); Mean Corpuscular Hemoglobin 32.5 pg (26-34); Mean Corpuscular Volume 96.9 fl (80-100); Mean Platelet Volume 12.1 fl (7.4-10.4); Monocytes Absolute Auto 0.8 K/mm3 (0.1-0.6); Monocytes Percent Auto 13.2 % (2.6-8.5); Neutrophils Absolute Auto 3.7 K/mm3 (1.3-6.7); Neutrophils Percent Auto 57.9 % (45.5-73.1); Platelet Count Result 125 k/mm3 (150-375); Red Blood Count 3.26 M/mm3 (4.6-6.20); Red Cell Distribution Width 12.7 % (11.5-14.5); White Blood Count 6.4 K/mm3 (4.5-10.0)
[2023-03-31 22:51] LABS: Appearance Urine Clear (Clear); Bacteria Urine None Seen /hpf; Bilirubin Urine Negative (Negative); Blood Urine Negative (Negative); Color Urine Yellow (Yellow); Glucose Urine UA 3+ mg/dL (Negative); Ketones Urine Negative (Negative); Leukocyte Esterase Ur Negative LEU/UL (Negative); Nitrate Urine Negative (Negative); Non Pathogenic Casts 0-2; Protein Urine Trace mg/dL (Negative); RBC Urine 0-2 /hpf (0-2); Specific Grav Ur 1.017 (1.001-1.035); Squamous Epithelial Cell Urine None seen /hpf (Few); Urobilinogen Urine 0.2 mg/dL (<2.0); WBC Urine 0-5 /hpf; pH Urine 5.5 (5.0-9.0)
[2023-03-31 22:53] LABS: Add Urine Microscopic? YES
[2023-03-31 23:01] LABS: Anion Gap 9 mmol/L (8-16); Blood Urea Nitrogen 38 mg/dL (9-20); Calcium 8.9 mg/dL (8.4-10.2); Carbon Dioxide 25 mmol/L (22-30); Chloride 103 mmol/L (98-107); Estimated CRCL calculation 35 ml/min; Estimated Glomerular Filt Rate 37; Glucose 325 mg/dL (65-110); Potassium 4.3 mmol/L (3.4-5.0); Sodium 137 mmol/L (137-145)
[2023-04-01 00:20] LABS: Glucose Point of Care 266 mg/dl (65-105)
--- NOTE | 2023-04-01 01:29 | ED.GENADULT ---
HPI - General Adult General Chief complaint: Recheck/Abnormal Lab/Rx Stated complaint: elevated glucose Time Seen by Provider: 03/31/23 21:48 History of Present Illness HPI narrative: this is a 77-year-old dementia patient presenting with elevated glucose. Patient went out with his son for a day of golf. While he was out he had [employer] [place] a. He did not take his insulin. When he got back to the halfway the glucometer read high. He was then sent to the emergency department. Patient has no complaints this time. Related Data Home Medications Medication Instructions Recorded Confirmed amlodipine 10 mg tablet 10 mg PO DAILY 08/03/19 09/10/22 atorvastatin 40 mg tablet 40 mg PO HS 08/03/19 09/10/22 escitalopram oxalate 10 mg tablet 10 mg PO DAILY 08/03/19 09/10/22 (Lexapro) insulin aspart U-100 100 unit/mL 5 unit subcut QACBREAK 08/03/19 09/10/22 (3 mL) subcutaneous pen (Novolog FlexPen U-100 Insulin aspart) insulin aspart U-100 100 unit/mL 6 unit subcut QACLUNCH 08/03/19 09/10/22 (3 mL) subcutaneous pen (Novolog FlexPen U-100 Insulin aspart) insulin aspart U-100 100 unit/mL 7 unit subcut QACDINNER 08/03/19 09/10/22 (3 mL) subcutaneous pen (Novolog FlexPen U-100 Insulin aspart) insulin glargine U-300 conc 300 32 unit subcut HS 08/03/19 09/10/22 unit/mL (1.5 mL) subcutaneous pen (Toujeo SoloStar U-300 Insulin) pantoprazole 40 mg tablet,delayed 40 mg PO DAILY 02/19/21 09/10/22 release Allergies Allergy/AdvReac Type Severity Reaction Status Date / Time oxycodone Allergy Mild Rash Verified 02/05/23 12:47 tasneem Allergy Swelling Verified 02/05/23 12:47 of Lip/Tongue/Throat PMFSH Past Medical History Medical History Anemia Anxiety Stewart esophagus Bronchitis Colon cancer screening Dementia With history of evaluation by a neurologist. Symptoms since 2018 Diabetes DVT (deep venous thrombosis) Right lower extremity with associated pulmonary embolism in 2013 Erectile dysfunction GERD (gastroesophageal reflux disease) HTN (hypertension) Hyperlipidemia IBS (irritable bowel syndrome) Pulmonary embolism 2014 Retinopathy diabetic Stage 3 chronic kidney disease Surgical History Surgical History H/O bilateral cataract extraction H/O left wrist surgery 1996 H/O repair of left rotator cuff History of surgical procedure on eye proper using laser For diabetic retinopathy Family History Family History Sibling Family history of obesity Father Depression Hypertension Hearing loss Seizure disorder Acute myocardial infarction Late onset coronary artery disease Mother Hypertension Cerebrovascular accident Congestive heart failure Social History Social History Social History: 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 He lives in [place] with his . He occasionally will drink beer but only in moderation. He is a lifelong nonsmoker. He has 3 dogs at home. [place] and [place] about once per week. Primary care physician: [facility] Code status: Full code per EMR Smoking status: Never smoker Second hand tobacco smoke exposure: No Alcohol intake: never Drinks per week: 1 Substance use: never Substance use type: does not use Living arrangements: with family Gender identity (if verbalized by the patient): Male Spiritual care concerns: No Exam Narrative: APPEARANCE: No apparent distress. Head: atraumatic. EYES: EOMI, NOSE: Atraumatic NECK: Trachea midline RESPIRATORY: No increased rate of breathing clear to auscultation CARDIOVASCULAR: RRR, ABDOMINAL: Non-distended Soft nontender no guarding or rebound MUSCULOSKELETAl: No obvious deformities
[2023-04-01 04:11] VITALS: BP 168/74; PULSE 56; RESP 16; O2SAT 98
== END 2023-04-01 04:13 ==
PROVIDERS: Emergency Provider Emergency Medicine; PCP Nurse Practitioner Family
DX: E11.65 Type 2 diabetes mellitus with hyperglycemia (principal); I12.9 Hypertensive chronic kidney disease with stage 1 through stage 4 chronic kidney disease, or unspecified chronic kidney disease; E11.22 Type 2 diabetes mellitus with diabetic chronic kidney disease; N18.30 Chronic kidney disease, stage 3 unspecified; E11.319 Type 2 diabetes mellitus with unspecified diabetic retinopathy without macular edema; F03.90 Unspecified dementia, unspecified severity, without behavioral disturbance, psychotic disturbance, mood disturbance, and anxiety; E78.5 Hyperlipidemia, unspecified; D64.9 Anemia, unspecified; K58.9 Irritable bowel syndrome, unspecified; K21.9 Gastro-esophageal reflux disease without esophagitis; K22.70 Barrett's esophagus without dysplasia; F41.9 Anxiety disorder, unspecified; Z86.718 Personal history of other venous thrombosis and embolism; Z86.711 Personal history of pulmonary embolism; Z79.4 Long term (current) use of insulin; Z98.49 Cataract extraction status, unspecified eye; R00.1 Bradycardia, unspecified; I44.0 Atrioventricular block, first degree; R94.31 Abnormal electrocardiogram [ECG] [EKG]
CPT/HCPCS: 36415; 80048; 81001; 82948; 85025; 93005; 96360; 96361; 99283; J7030

== ENCOUNTER 2023-08-20 13:18 | Emergency (ER) | payer MEDICARE, OTHER, SELFPAY ==
[2023-08-20 13:29] VITALS: BP 146/78; PULSE 79; RESP 18; TEMP 37.2; O2SAT 99
[2023-08-20 13:32] LABS: Glucose Point of Care 200 mg/dl (65-105)
[2023-08-20 14:28] LABS: Appearance Urine Clear (Clear); Bacteria Urine None Seen /hpf; Bilirubin Urine Negative (Negative); Blood Urine Negative (Negative); Color Urine Yellow (Yellow); Glucose Urine UA Negative (Negative); Ketones Urine Negative (Negative); Leukocyte Esterase Ur Negative LEU/UL (Negative); Nitrate Urine Negative (Negative); Protein Urine 1+ mg/dL (Negative); RBC Urine 0-2 /hpf (0-2); Squamous Epithelial Cell Urine None seen /hpf (Few); Urobilinogen Urine 0.2 mg/dL (<2.0); WBC Urine 0-5 /hpf
--- NOTE | 2023-08-20 14:33 | ED.GENADULT ---
HPI - General Adult General Chief complaint: Unspecified Stated complaint: agitation Time Seen by Provider: 08/20/23 14:04 History of Present Illness HPI narrative: Patient is a 77-year-old male with a history of dementia presenting with an episode of agitation. He is coming from a nursing facility and was apparently combative. On arrival here, patient is pleasant and cooperative. He states that he was golfing and his was ruining his game so he became angry. He denies any complaints. He states that he feels ?fantastic?. Related Data Home Medications Medication Instructions Recorded Confirmed amlodipine 10 mg tablet 10 mg PO DAILY 08/03/19 09/10/22 atorvastatin 40 mg tablet 40 mg PO HS 08/03/19 09/10/22 escitalopram oxalate 10 mg tablet 10 mg PO DAILY 08/03/19 09/10/22 (Lexapro) insulin aspart U-100 100 unit/mL 5 unit subcut QACBREAK 08/03/19 09/10/22 (3 mL) subcutaneous pen (Novolog FlexPen U-100 Insulin aspart) insulin aspart U-100 100 unit/mL 6 unit subcut QACLUNCH 08/03/19 09/10/22 (3 mL) subcutaneous pen (Novolog FlexPen U-100 Insulin aspart) insulin aspart U-100 100 unit/mL 7 unit subcut QACDINNER 08/03/19 09/10/22 (3 mL) subcutaneous pen (Novolog FlexPen U-100 Insulin aspart) insulin glargine U-300 conc 300 32 unit subcut HS 08/03/19 09/10/22 unit/mL (1.5 mL) subcutaneous pen (Toujeo SoloStar U-300 Insulin) pantoprazole 40 mg tablet,delayed 40 mg PO DAILY 02/19/21 09/10/22 release Allergies Allergy/AdvReac Type Severity Reaction Status Date / Time oxycodone Allergy Mild Rash Verified 02/05/23 12:47 tasneem Allergy Swelling Verified 02/05/23 12:47 of Lip/Tongue/Throat Review of Systems Review of Systems: All systems reviewed & are unremarkable except as noted in HPI and below PMFSH Past Medical History Medical History Anemia Anxiety Stewart esophagus Bronchitis Colon cancer screening Dementia With history of evaluation by a neurologist. Symptoms since 2018 Diabetes DVT (deep venous thrombosis) Right lower extremity with associated pulmonary embolism in 2013 Erectile dysfunction GERD (gastroesophageal reflux disease) HTN (hypertension) Hyperlipidemia IBS (irritable bowel syndrome) Pulmonary embolism 2014 Retinopathy diabetic Stage 3 chronic kidney disease Surgical History Surgical History H/O bilateral cataract extraction H/O left wrist surgery 1996 H/O repair of left rotator cuff History of surgical procedure on eye proper using laser For diabetic retinopathy Family History Family History Sibling Family history of obesity Father Depression Hypertension Hearing loss Seizure disorder Acute myocardial infarction Late onset coronary artery disease Mother Hypertension Cerebrovascular accident Congestive heart failure Social History Social History Social History: 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 He lives in [place] with his . He occasionally will drink beer but only in moderation. He is a lifelong nonsmoker. He has 3 dogs at home. [place] and [place] about once per week. Primary care physician: Code status: Full code per EMR Smoking status: Never smoker Second hand tobacco smoke exposure: No Alcohol intake: never Drinks per week: 1 Substance use: never Substance use type: does not use Living arrangements: with family Gender identity (if verbalized by the patient): Male Spiritual care concerns: No Exam Narrative: GENERAL: Well-appearing, nontoxic, pleasant and cooperative HEAD: Normocephalic, atraumatic. EYES: PERRLA and EOMI. ENT: Mucous membranes moist. NECK: Suppl
[2023-08-20 14:43] LABS: Add Urine Microscopic? YES
== END 2023-08-20 15:04 ==
PROVIDERS: Emergency Provider Emergency Medicine; PCP Nurse Practitioner Family
DX: F03.911 Unspecified dementia, unspecified severity, with agitation (principal); E11.22 Type 2 diabetes mellitus with diabetic chronic kidney disease; I12.9 Hypertensive chronic kidney disease with stage 1 through stage 4 chronic kidney disease, or unspecified chronic kidney disease; N18.30 Chronic kidney disease, stage 3 unspecified; E78.5 Hyperlipidemia, unspecified; E11.319 Type 2 diabetes mellitus with unspecified diabetic retinopathy without macular edema; K21.9 Gastro-esophageal reflux disease without esophagitis; K22.70 Barrett's esophagus without dysplasia; K58.9 Irritable bowel syndrome, unspecified; F41.9 Anxiety disorder, unspecified; Z86.718 Personal history of other venous thrombosis and embolism; Z86.711 Personal history of pulmonary embolism; Z86.2 Personal history of diseases of the blood and blood-forming organs and certain disorders involving the immune mechanism; Z98.49 Cataract extraction status, unspecified eye; Z79.4 Long term (current) use of insulin
CPT/HCPCS: 81001; 82948; 99283

== ENCOUNTER 2023-10-06 14:16 | Emergency (ER) | payer MEDICARE, OTHER, SELFPAY ==
[2023-10-06 14:29] VITALS: BP 123/78; PULSE 64; RESP 18; TEMP 36.7; O2SAT 100
[2023-10-06 15:19] LABS: Appearance Urine Clear (Clear); Bacteria Urine 4+ /hpf; Bilirubin Urine Negative (Negative); Blood Urine 1+ (Negative); Color Urine Yellow (Yellow); Glucose Urine UA Negative (Negative); Ketones Urine Negative (Negative); Leukocyte Esterase Ur 1+ LEU/UL (Negative); Nitrate Urine Negative (Negative); Non Pathogenic Casts 0-2; Protein Urine Negative (Negative); Specific Grav Ur 1.008 (1.001-1.035); Squamous Epithelial Cell Urine None Seen /hpf (Few)
[2023-10-06 15:43] LABS: Add Urine Microscopic? YES
[2023-10-06 17:15] LABS: Glucose Point of Care 103 mg/dl (65-105)
--- NOTE | 2023-10-06 17:32 | ED.MALEGU ---
HPI - Male Genitourinary General Chief complaint: Urogenital-Male Stated complaint: urinary sx Time Seen by Provider: 10/06/23 14:31 History of Present Illness HPI Narrative: Patient is a 78-year-old male who presents ER with with concerns for urinary retention. Patient is having trouble urinating here in the ER and is pointing to his penis area and discomfort. Abraham catheter placed and 1000 mL of urine returned. Patient has profound dementia and cannot provide any history. Related Data Home Medications Medication Instructions Recorded Confirmed amlodipine 10 mg tablet 10 mg PO DAILY 08/03/19 09/10/22 atorvastatin 40 mg tablet 40 mg PO HS 08/03/19 09/10/22 escitalopram oxalate 10 mg tablet 10 mg PO DAILY 08/03/19 09/10/22 (Lexapro) insulin aspart U-100 100 unit/mL 5 unit subcut QACBREAK 08/03/19 09/10/22 (3 mL) subcutaneous pen (Novolog FlexPen U-100 Insulin aspart) insulin aspart U-100 100 unit/mL 6 unit subcut QACLUNCH 08/03/19 09/10/22 (3 mL) subcutaneous pen (Novolog FlexPen U-100 Insulin aspart) insulin aspart U-100 100 unit/mL 7 unit subcut QACDINNER 08/03/19 09/10/22 (3 mL) subcutaneous pen (Novolog FlexPen U-100 Insulin aspart) insulin glargine U-300 conc 300 32 unit subcut HS 08/03/19 09/10/22 unit/mL (1.5 mL) subcutaneous pen (Toujeo SoloStar U-300 Insulin) pantoprazole 40 mg tablet,delayed 40 mg PO DAILY 02/19/21 09/10/22 release Allergies Allergy/AdvReac Type Severity Reaction Status Date / Time oxycodone Allergy Mild Rash Verified 02/05/23 12:47 tasneem Allergy Swelling Verified 02/05/23 12:47 of Lip/Tongue/Throat Review of Systems Review of Systems: ROS unobtainable: Yes unobtainable due to mental status PMFSH Past Medical History Medical History Anemia Anxiety Stewart esophagus Bronchitis Colon cancer screening Dementia With history of evaluation by a neurologist. Symptoms since 2018 Diabetes DVT (deep venous thrombosis) Right lower extremity with associated pulmonary embolism in 2014 Erectile dysfunction GERD (gastroesophageal reflux disease) HTN (hypertension) Hyperlipidemia IBS (irritable bowel syndrome) Pulmonary embolism 2014 Retinopathy diabetic Stage 3 chronic kidney disease Surgical History Surgical History H/O bilateral cataract extraction H/O left wrist surgery 1996 H/O repair of left rotator cuff History of surgical procedure on eye proper using laser For diabetic retinopathy Family History Family History Sibling Family history of obesity Father Depression Hypertension Hearing loss Seizure disorder Acute myocardial infarction Late onset coronary artery disease Mother Hypertension Cerebrovascular accident Congestive heart failure Social History Social History Social History: 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 He lives in [place] with his . He occasionally will drink beer but only in moderation. He is a lifelong nonsmoker. He has 3 dogs at home. [place] and [place] about once per week. Primary care physician: [facility] Code status: Full code per EMR Smoking status: Never smoker Second hand tobacco smoke exposure: No Alcohol intake: never Drinks per week: 1 Substance use: never Substance use type: does not use Living arrangements: with family Gender identity (if verbalized by the patient): Male Spiritual care concerns: No Exam Narrative: GENERAL: Well-appearing, well-nourished, and in no acute distress. HEAD: Normocephalic, atraumatic. ENT: Mucous membranes moist. CHEST: Clear to auscultation. No respiratory distress. HEART: Regular rate and rhythm. Normal
[2023-10-06] MEDS: cefuroxime axetiL 250 MG TABLET 500 MG PO (18:13)
[2023-10-06 18:17] VITALS: BP 128/79; PULSE 63; RESP 18; O2SAT 100
== END 2023-10-06 19:01 ==
PROVIDERS: Emergency Provider Emergency Medicine
DX: N39.0 Urinary tract infection, site not specified (principal); R33.9 Retention of urine, unspecified; F03.90 Unspecified dementia, unspecified severity, without behavioral disturbance, psychotic disturbance, mood disturbance, and anxiety; I12.9 Hypertensive chronic kidney disease with stage 1 through stage 4 chronic kidney disease, or unspecified chronic kidney disease; E11.22 Type 2 diabetes mellitus with diabetic chronic kidney disease; N18.30 Chronic kidney disease, stage 3 unspecified; E11.319 Type 2 diabetes mellitus with unspecified diabetic retinopathy without macular edema; E78.5 Hyperlipidemia, unspecified; K21.9 Gastro-esophageal reflux disease without esophagitis; K22.70 Barrett's esophagus without dysplasia; K58.9 Irritable bowel syndrome, unspecified; Z86.711 Personal history of pulmonary embolism; Z98.42 Cataract extraction status, left eye; Z98.41 Cataract extraction status, right eye; Z79.4 Long term (current) use of insulin
CPT/HCPCS: 51702; 81001; 82948; 87077; 87086; 87088; 87186; 96372; 99283; A9270

== ENCOUNTER 2023-10-17 15:22 | Inpatient (IN) | payer MEDICARE, OTHER, SELFPAY ==
[2023-10-17] VITALS (7 sets, daily range): BP systolic 129–154; BP diastolic 61–73; PULSE 58–61; RESP 14–18; TEMP 36.1; O2SAT 97–99; BMI 18.4
--- NOTE | ~2023-10-17 | CT_ITS ---
EXAMINATION: CT brain wo con INDICATION: Altered mental status COMPARISON: 08/03/2019 TECHNIQUE: Standard unenhanced head CT. The dose-length product (DLP) was 756.67 mGy-cm. The mA was a djusted according to patient size. Iterative reconstruction technique was employed. FINDINGS: No acute intraparenchymal hemorrhage. No evidence of mass lesion. No evidence of acute infa rction. There is moderate periventricular and subcortical hypodensity probably related to small vesse l ischemic disease. There is moderate prominence of the sulci and ventricles related to cerebral atro phy. Intracranial calcified cerebral atherosclerosis is noted. No extra-axial collections. No mass ef fect or midline shift. Changes in the globes are likely from ocular lens surgery. The visualized sinu ses and mastoid air cells are well aerated. IMPRESSION: 1. No acute intracranial abnormality. 2. Age related findings. Reviewed, dictated and finalized at location F.
--- NOTE | ~2023-10-17 | XR_ITS ---
EXAMINATION: XR chest 1V portable INDICATION: Altered mental status TECHNIQUE: Portable AP chest at 1707 hours COMPARISON: None available FINDINGS: The lungs are free of acute opacities. Cardiomegaly is noted. No pleural effusion or pneumo thorax. A cardiac monitoring device projects over the left heart. IMPRESSION: 1. Cardiomegaly. Reviewed, dictated and finalized at location F. IMPRESSION: 1. Cardiomegaly.
--- NOTE | 2023-10-17 15:36 | PC.NURSE ---
sitter placed at bedside for pt safety. pt attempted to climb out of bed. fall precautions initiated.
--- NOTE | 2023-10-17 16:14 | ECG_ITS ---
Measurements Intervals [place] Rate: 60 P: GA: 0 QRS: 41 QRSD: 150 T: 0 QT: 490 QTc: 490 Interpretive Statements ELECTRONIC VENTRICULAR PACEMAKER BASELINE ARTIFACT- I, II, III, AVR, AVL, AVF, V1-V6 NO FURTHER INTERPRETATION IS POSSIBLE ATYPICAL ECG COMPARED TO ECG 03/31/2023 22:39:55 ELECTRONIC VENTRICULAR PACEMAKER NOW PRESENT Electronically Signed On 10-17-2023 17:00:52 CDT by Benitez Gallego D.O.
[2023-10-17 16:57] LABS: Basophils Percent Auto 0.7 % (0.2-1.2); Eosinophils Absolute Auto 0.1 K/mm3 (0-0.3); Hemoglobin 10.9 g/dL (14.0-18.0); Immature Granulocyte Absolute 0.03 K/mm3 (0.00-0.031); Immature Granulocyte Percent A 0.5 % (0-0.5); Lymphocytes Absolute Auto 1.15 K/mm3 (0.9-3.2); Lymphocytes Percent Auto 19.4 % (18.3-44.2); Mean Corpuscular Hemoglobin 33.1 pg (26-34); Mean Corpuscular Volume 100.3 fl (80-100); Mean Platelet Volume 12.4 fl (7.4-10.4); Monocytes Absolute Auto 0.7 K/mm3 (0.1-0.6); Monocytes Percent Auto 11.8 % (2.6-8.5); Neutrophils Absolute Auto 3.9 K/mm3 (1.3-6.7); Neutrophils Percent Auto 66.6 % (45.5-73.1); Platelet Count Result 160 k/mm3 (150-375); Red Blood Count 3.29 M/mm3 (4.6-6.20); Red Cell Distribution Width 14.1 % (11.5-14.5); White Blood Count 5.9 K/mm3 (4.5-10.0)
[2023-10-17 17:01] LABS: Alanine Aminotransferase 21 U/L (6-50); Albumin Level 3.2 g/dL (3.5-5.1); Alkaline Phosphatase 76 U/L (38-126); Anion Gap 4 mmol/L (8-16); Aspartate Amino Transferase 25 U/L (17-59); Bilirubin,Total 0.5 mg/dL (0.2-1.3); Blood Urea Nitrogen 74 mg/dL (9-20); Calcium 8.6 mg/dL (8.4-10.2); Carbon Dioxide 26 mmol/L (22-30); Chloride 105 mmol/L (98-107); Estimated CRCL calculation 25 ml/min; Estimated Glomerular Filt Rate 31; Glucose 348 mg/dL (65-110); Sodium 135 mmol/L (137-145)
--- NOTE | 2023-10-17 17:01 | ED.AMS ---
HPI - Altered Mental Status General Chief Complaint: Altered Mental Status <Jessica Garrido III, DO - Last Filed: 10/19/23 12:20> Stated Complaint: altered mental status <Jessica Garrido III, DO - Last Filed: 10/19/23 12:20> Time Seen by Provider: 10/17/23 16:51 <Jessica Garrido III, DO - Last Filed: 10/19/23 12:20> History of Present Illness HPI narrative: Pt presents with altered mental status. Family says he is demented but usually awake and alert. Today he is very drowsy and looks like a zombie from the walking . Pt has had a couple of medicines added for urinary retension and takes trazadone for sleep prn. Family not sure if has taken trazadone last few nights. <Jessica Garrido III, DO - Last Filed: 10/19/23 12:20> Related Data Home Medications: Home Medications Medication Instructions Recorded Confirmed atorvastatin 40 mg tablet 40 mg PO HS 08/03/19 10/18/23 insulin glargine U-300 conc 300 23 unit subcut HS 08/03/19 09/10/22 unit/mL (1.5 mL) subcutaneous pen (TouBlossom SoloStar U-300 Insulin) finasteride 5 mg tablet 5 mg PO DAILY 10/17/23 10/17/23 furosemide 40 mg tablet 40 mg PO DAILY 10/17/23 10/18/23 apixaban 5 mg tablet (Eliquis) 5 mg PO DAILY 10/18/23 10/18/23 citalopram 20 mg tablet 20 mg PO DAILY 10/18/23 10/18/23 divalproex 125 mg capsule,delayed 250 mg PO BID 10/18/23 10/18/23 release sprinkle fluticasone propionate 50 2 spray intranasal DAILY 10/18/23 10/18/23 mcg/actuation nasal spray,suspension haloperidol 2 mg tablet See Rx Instructions .Route 10/18/23 10/18/23 .COMPLEX PRN Agitation memantine 5 mg tablet 5 mg PO DAILY 10/18/23 10/18/23 metoprolol succinate 25 mg 25 mg PO DAILY 10/18/23 10/18/23 tablet,extended release 24 hr sodium zirconium cyclosilicate 10 10 g PO DAILY 10/18/23 10/18/23 gram oral powder packet (Lokelma) <Jessica Garrido III, DO - Last Filed: 10/19/23 12:20> Allergies/Adverse Reactions: Allergies Allergy/AdvReac Type Severity Reaction Status Date / Time oxycodone Allergy Mild Rash Verified 02/05/23 12:47 tasneem Allergy Swelling Verified 02/05/23 12:47 of Lip/Tongue/Throat <Jessicamagdi Garrido III, DO - Last Filed: 10/19/23 12:20> Review of Systems Review of Systems: All systems reviewed & are unremarkable except as noted in HPI and below <Jessica Garrido III, DO - Last Filed: 10/19/23 12:20> PMFSH Past Medical History Medical History: Medical History (Updated 10/18/23 @ 13:22 by Josefina Wolf, KARSTEN) Anemia Anxiety Stewart esophagus Bronchitis Colon cancer screening Dementia With history of evaluation by a neurologist. Symptoms since 2017 Diabetes DVT (deep venous thrombosis) Right lower extremity with associated pulmonary embolism in 2013 Erectile dysfunction GERD (gastroesophageal reflux disease) HTN (hypertension) Hyperlipidemia IBS (irritable bowel syndrome) Pulmonary embolism 2013 Retinopathy diabetic Stage 3 chronic kidney disease <Jessica Garrido III, DO - Last Filed: 10/19/23 12:20> Surgical History Surgical History: Surgical History H/O bilateral cataract extraction H/O left wrist surgery 1996 H/O repair of left rotator cuff History of surgical procedure on eye proper using laser For diabetic retinopathy <Jessica Garrido III, DO - Last Filed: 10/19/23 12:20> Family History Family History: Family History Sibling Family history of obesity Father Depression Hypertension Hearing loss Seizure disorder Acute myocardial infarction Late onset coronary artery disease Mother Hypertension Cerebrovascular accident Congestive heart failure <Jessicamagdi Garrido III, DO - Last Filed: 10/19/23 12:20> Social History Social History: Social History Soci
[2023-10-17 17:05] LABS: INR 1.2; Partial Thromboplastin Time 29.2 Seconds (22.3-36.8); Prothrombin Time 15.5 Seconds (11.1-14.7)
[2023-10-17 17:41] LABS: Bacteria Urine None Seen /hpf; RBC Urine 0-2 /hpf (0-2); Squamous Epithelial Cell Urine None Seen /hpf (Few); WBC Urine 0-5 /hpf (0-3)
[2023-10-17 17:49] LABS: Appearance Urine Clear (Clear); Color Urine Yellow (Yellow)
[2023-10-17 17:50] LABS: Glucose Urine UA 2+ mg/dL (Negative); Protein Urine Negative (Negative); Specific Grav Ur 1.015 (1.001-1.035)
[2023-10-17 17:51] LABS: Blood Urine Negative (Negative); Ketones Urine Trace mg/dL (Negative); Nitrate Urine Negative (Negative)
[2023-10-17 17:52] LABS: Bilirubin Urine Negative (Negative); Leukocyte Esterase Ur Negative LEU/UL (Negative); Urobilinogen Urine 0.2 mg/dL (<2.0)
[2023-10-17 17:53] LABS: Add Urine Microscopic? YES
[2023-10-17] MEDS: LORazepam INJ (*CRX) 2 MG/ML VIAL 1 MG IV PUSH (18:57)
--- NOTE | 2023-10-17 19:47 | PC.NURSE ---
MD made aware that pt will not sit still for CT after two attempts.
[2023-10-17] MEDS: OLANZapine 5 MG, WATER, STERILE FOR INJECTION 2.1 ML IM (20:48)
--- NOTE | 2023-10-17 22:18 | PM.IMHP ---
H&P: HPI History of Present Illness Date/Time: 10/17/23 22:18 Chief Complaint: altered mental status Narrative: this is a 78-year-old male with past medical history significant for dementia, chronic kidney disease, hypertension, benign prostatic hyperplasia Deep venous thrombosis, pulmonary embolism on anticoagulation. Patient was brought to the emergency room by his due to concerns for altered mental status patient has been lethargic poor per orally intake. In emergency room patient was found to have a BUN in the 70s and a creatinine of 2.1 rest of the workup has been essentially nonrevealing. Patient is been admitted for further evaluation management and treatment. EXAMINATION: XR chest 1V portable INDICATION: Altered mental status TECHNIQUE: Portable AP chest at 1707 hours COMPARISON: None available FINDINGS: The lungs are free of acute opacities. Cardiomegaly is noted. No pleural effusion or pneumothorax. A cardiac monitoring device projects over the left heart. IMPRESSION: 1. Cardiomegaly. EXAMINATION: CT brain wo con ? INDICATION: Altered mental status ? COMPARISON: 08/03/2019 TECHNIQUE: Standard unenhanced head CT. The dose-length product (DLP) was 756.67 mGy-cm. The mA was adjusted according to patient size. Iterative reconstruction technique was employed. ? FINDINGS: No acute intraparenchymal hemorrhage. No evidence of mass lesion. No evidence of acute infarction. There is moderate periventricular and subcortical hypodensity probably related to small vessel ischemic disease. There is moderate prominence of the sulci and ventricles related to cerebral atrophy. Intracranial calcified cerebral atherosclerosis is noted. No extra-axial collections. No mass effect or midline shift. Changes in the globes are likely from ocular lens surgery. The visualized sinuses and mastoid air cells are well aerated. IMPRESSION: 1. No acute intracranial abnormality. 2. Age related findings. [facility] Past Medical History Medical History Anemia Anxiety Stewart esophagus Bronchitis Colon cancer screening Dementia With history of evaluation by a neurologist. Symptoms since 2018 Diabetes DVT (deep venous thrombosis) Right lower extremity with associated pulmonary embolism in 2013 Erectile dysfunction GERD (gastroesophageal reflux disease) HTN (hypertension) Hyperlipidemia IBS (irritable bowel syndrome) Pulmonary embolism 2014 Retinopathy diabetic Stage 3 chronic kidney disease Surgical History Surgical History H/O bilateral cataract extraction H/O left wrist surgery 1996 H/O repair of left rotator cuff History of surgical procedure on eye proper using laser For diabetic retinopathy Family History Family History Sibling Family history of obesity Father Depression Hypertension Hearing loss Seizure disorder Acute myocardial infarction Late onset coronary artery disease Mother Hypertension Cerebrovascular accident Congestive heart failure Social History Social History Social History: 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 He lives in [place] with his . He occasionally will drink beer but only in moderation. He is a lifelong nonsmoker. He has 3 dogs at home. [place] and [place] about once per week. Primary care physician: [facility] Code status: Full code per EMR Smoking status: Never smoker Second hand tobacco smoke exposure: No Alcohol intake: never Drinks per week: 1 Substance use: never Substance use type: does not use Living arrangements: with family Gender identity (if verbalized by the patient): Male Spiritual care concerns: No Meds Home Medi
--- NOTE | 2023-10-17 23:31 | ADMGEN ---
This patient, Lele Khanna, was admitted to [facility] Surg Room 325-01 at 23:30. Patient/family oriented to hospital policies and general routines including ID bracelet, bed and alarms, visiting hours, pain management, procedures, bathroom and other care routines, personal items, smoking policy, room service/diet, and visiting hours. Information on how to activate the Rapid Response Team has been discussed. Patient/Family are encouraged to report perceived risks to care and to ask questions if they do not understand what they are told or what they should do.
--- NOTE | 2023-10-17 23:38 | ADMGEN ---
This patient, Lele Khanna, was admitted to [facility] Surg Room 325-01. Patient/family oriented to hospital policies and general routines including ID bracelet, bed and alarms, visiting hours, pain management, procedures, bathroom and other care routines, personal items, smoking policy, room service/diet, and visiting hours. Information on how to activate the Rapid Response Team has been discussed. Patient/Family are encouraged to report perceived risks to care and to ask questions if they do not understand what they are told or what they should do.
[2023-10-17 23:56] LABS: Glucose Point of Care 373 mg/dl (65-105)
[2023-10-18] MEDS: INSULIN HUMAN REGULAR (*BKC) 100 UNITS/ML 6 UNITS SUB-Q (00:32)
[2023-10-18 05:20] VITALS: BP 153/75; PULSE 110; RESP 16; TEMP 36.1; O2SAT 98
[2023-10-18 06:00] VITALS: PULSE 60; O2SAT 96
[2023-10-18 07:53] LABS: Glucose Point of Care 339 mg/dl (65-105)
[2023-10-18] MEDS: INSULIN ASPART (*BKC) 100 UNITS/ML SUB-Q ×3 (08:50→20:48)
[2023-10-18] MEDS: HALOPERIDOL LACTATE 5 MG/ML VIAL IM (08:52)
[2023-10-18 10:35] VITALS: O2SAT 96
[2023-10-18 11:38] LABS: Glucose Point of Care 379 mg/dl (65-105)
--- NOTE | 2023-10-18 12:57 | P.PNIM_ITS ---
Progress Note: A&P Assessment and Plan (1) Altered mental status: Code(s): R41.82 - Altered mental status, unspecified Status: Acute Assessment and Plan: 10/17/2023: likely secondary to polypharmacy holding all meds currently CT head reviewed supportive care continue to monitor 10/18/2023: * CT of the head was negative for any acute findings * continue neuro checks * questionable polypharmacy versus advancing dementia (2) Dementia: Code(s): F03.90 - Unspecified dementia, unspecified severity, without behavioral disturbance, psychotic disturbance, mood disturbance, and anxiety Status: Chronic Assessment and Plan: 10/17/2023: holding Namenda holding divalproex 10/18/2023: * lives at a memory care facility with his * continue Namenda and Depakote * Haldol ordered p.r.n. q.6 for agitation (3) Acute on chronic kidney failure: Qualifiers: Acute renal failure type: unspecified Chronic kidney disease stage: unspecified stage Qualified Code(s): N17.9 - Acute kidney failure, unspecified; N18.9 - Chronic kidney disease, unspecified Code(s): N17.9 - Acute kidney failure, unspecified; N18.9 - Chronic kidney disease, unspecified Status: Acute Assessment and Plan: 10/17/2023: likely to be pre renal azotemia gentle hydration continue to monitor BUN and creatinine 10/18/2023: * BUN 74, creatinine 2.10, EGFR 31 * patient does have history of chronic kidney disease stage 3 * baseline creatinine appears to be 1.6-1.8 * will hold Lasix due to ALEX (4) T2DM (type 2 diabetes mellitus): Code(s): E11.9 - Type 2 diabetes mellitus without complications Status: Chronic Assessment and Plan: 10/17/2023: holding insulin 10/18/2023: * blood sugars ranging 339- 373 * Accu-Cheks AC and HS * hypoglycemia protocol in place * hemoglobin A1c ordered * high-dose sliding scale insulin ordered * Lantus 23 units ordered for tonight (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 Assessment and Plan: 10/18/2023: * continue Protonix (6) HTN (hypertension): Code(s): I10 - Essential (primary) hypertension Status: Acute Assessment and Plan: 10/18/2023: * blood pressure ranging 129/61 to 154/73 * continue with metoprolol (7) Hyperlipidemia: Code(s): E78.5 - Hyperlipidemia, unspecified Status: Acute Assessment and Plan: 10/18/2023: * continue atorvastatin Time Spent With Patient Time with patient: Greater than 35 minutes Subjective Date/time seen: 10/18/23 12:57 Interval history: This is a 78-year-old male With a significant past medical history of anemia, anxiety, Stewart's esophagus, bronchitis, dementia, diabetes, DVT, erectile dysfunction, GERD, hypertension, hyperlipidemia, IBS, PE, stage 3 chronic kidney disease, retinopathy who came to the hospital on 10/17/2023 with altered mental status. He was transported to the hospital by his who had concerns for his altered mental status, increased weakness, and decreased oral intake of food a nd fluids. Workup in the hospital included a chest x-ray which was negative. head CT was also negative, only showed age-related changes. EKG was done which shown a ventricular paced rhythm with a rate of 60. Initial labs revealed a normal white blood cell count of 5.9, hemoglobin of 10.9, INR 1.2, sodium 135, BUN 74, creatinine 2.1, EGFR 31, blood sugars ranging 3
--- NOTE | 2023-10-18 12:57 | PM.IMPN ---
Progress Note: A&P Assessment and Plan (1) Altered mental status: Code(s): R41.82 - Altered mental status, unspecified Status: Acute Assessment and Plan: 10/17/2023: likely secondary to polypharmacy holding all meds currently CT head reviewed supportive care continue to monitor 10/18/2023: CT of the head was negative for any acute findings continue neuro checks questionable polypharmacy versus advancing dementia (2) Dementia: Code(s): F03.90 - Unspecified dementia, unspecified severity, without behavioral disturbance, psychotic disturbance, mood disturbance, and anxiety Status: Chronic Assessment and Plan: 10/17/2023: holding Namenda holding divalproex 10/18/2023: lives at a memory care facility with his continue Namenda and Depakote Haldol ordered p.r.n. q.6 for agitation (3) Acute on chronic kidney failure: Qualifiers: Acute renal failure type: unspecified Chronic kidney disease stage: unspecified stage Qualified Code(s): N17.9 - Acute kidney failure, unspecified; N18.9 - Chronic kidney disease, unspecified Code(s): N17.9 - Acute kidney failure, unspecified; N18.9 - Chronic kidney disease, unspecified Status: Acute Assessment and Plan: 10/17/2023: likely to be pre renal azotemia gentle hydration continue to monitor BUN and creatinine 10/18/2023: BUN 74, creatinine 2.10, EGFR 31 patient does have history of chronic kidney disease stage 3 baseline creatinine appears to be 1.6-1.8 will hold Lasix due to ALEX (4) T2DM (type 2 diabetes mellitus): Code(s): E11.9 - Type 2 diabetes mellitus without complications Status: Chronic Assessment and Plan: 10/17/2023: holding insulin 10/18/2023: blood sugars ranging 339- 373 Accu-Cheks AC and HS hypoglycemia protocol in place hemoglobin A1c ordered high-dose sliding scale insulin ordered Lantus 23 units ordered for tonight (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 Assessment and Plan: 10/18/2023: continue Protonix (6) HTN (hypertension): Code(s): I10 - Essential (primary) hypertension Status: Acute Assessment and Plan: 10/18/2023: blood pressure ranging 129/61 to 154/73 continue with metoprolol (7) Hyperlipidemia: Code(s): E78.5 - Hyperlipidemia, unspecified Status: Acute Assessment and Plan: 10/18/2023: continue atorvastatin Time Spent With Patient Time with patient: Greater than 35 minutes Subjective Date/time seen: 10/18/23 12:57 Interval history: This is a 78-year-old male With a significant past medical history of anemia, anxiety, Stewart's esophagus, bronchitis, dementia, diabetes, DVT, erectile dysfunction, GERD, hypertension, hyperlipidemia, IBS, PE, stage 3 chronic kidney disease, retinopathy who came to the hospital on 10/17/2023 with altered mental status. He was transported to the hospital by his who had concerns for his altered mental status, increased weakness, and decreased oral intake of food and fluids. Workup in the hospital included a chest x-ray which was negative. head CT was also negative, only showed age-related changes. EKG was done which shown a ventricular paced rhythm with a rate of 60. Initial labs revealed a normal white blood cell count of 5.9, hemoglobin of 10.9, INR 1.2, sodium 135, BUN 74, creatinine 2.1, EGFR 31, blood sugars ranging 339-373, normal liver enzymes, albumin 3.2. A UA was also obtained which showed 2+ urine glucose, trace ketones, otherwise normal. Blood cultures were obtained and are pending. Patient was given dose of Ativan, Zyprexa, 6 units insulin while in the ED. On examination today patient unarousable to voice and sternal rub. Nursing said that he has been getting up and moving around as well as walking to the bathroom. He will only re
[2023-10-18 13:30] VITALS: BMI 18.4
[2023-10-18] MEDS: APIXABAN 5 MG TABLET PO (13:44)
[2023-10-18 14:00] VITALS: BP 132/62; PULSE 62; RESP 16; TEMP 36; O2SAT 100
[2023-10-18 16:22] LABS: Glucose Point of Care 167 mg/dl (65-105)
[2023-10-18] MEDS: DIVALPROEX SODIUM SPRINKLE 125 MG CAP.DR 250 MG PO (18:24)
[2023-10-18 20:36] LABS: Glucose Point of Care 398 mg/dl (65-105)
[2023-10-18] MEDS: INSULIN GLARGINE (*BKC) 100 UNITS/ML 23 UNITS SUB-Q (20:43)
[2023-10-18 21:33] VITALS: BP 125/75; PULSE 59; RESP 13; TEMP 36.1; O2SAT 100
[2023-10-18] MEDS: HALOPERIDOL 5 MG TABLET PO (22:08)
[2023-10-18] MEDS: OLANZapine 10 MG INJ VIAL 5 MG IM (23:47)
[2023-10-19] VITALS (7 sets, daily range): BP systolic 119–152; BP diastolic 50–65; PULSE 46–74; RESP 14–20; TEMP 35.9–36.4; O2SAT 98–99
[2023-10-19 07:25] LABS: Glucose Point of Care 211 mg/dl (65-105)
--- NOTE | 2023-10-19 07:31 | P.PNIM_ITS ---
Progress Note: A&P Assessment and Plan (1) Altered mental status: Code(s): R41.82 - Altered mental status, unspecified Status: Acute Assessment and Plan: 10/17/2023: likely secondary to polypharmacy holding all meds currently CT head reviewed supportive care continue to monitor 10/18/2023: * CT of the head was negative for any acute findings * continue neuro checks * questionable polypharmacy versus advancing dementia 10/19/23: * More alert today however he does not interact with me other than saying hi * Patient did receive Haldol after being straight cathed today for urinary retention (2) Dementia: Code(s): F03.90 - Unspecified dementia, unspecified severity, without behavioral disturbance, psychotic disturbance, mood disturbance, and anxiety Status: Chronic Assessment and Plan: 10/17/2023: holding Namenda holding divalproex 10/18/2023: * lives at a memory care facility with his * continue Namenda and Depakote * Haldol ordered p.r.n. q.6 for agitation 10/19/23: * Continue with current treatment plan (3) Acute on chronic kidney failure: Qualifiers: Acute renal failure type: unspecified Chronic kidney disease stage: unspecified stage Qualified Code(s): N17.9 - Acute kidney failure, unspecified; N18.9 - Chronic kidney disease, unspecified Code(s): N17.9 - Acute kidney failure, unspecified; N18.9 - Chronic kidney disease, unspecified Status: Acute Assessment and Plan: 10/17/2023: likely to be pre renal azotemia gentle hydration continue to monitor BUN and creatinine 10/18/2023: * BUN 74, creatinine 2.10, EGFR 31 * patient does have history of chronic kidney disease stage 3 * baseline creatinine appears to be 1.6-1.8 * will hold Lasix due to ALEX 10/19/23: * Creatinine down to 1.80 * patient back to baseline (4) T2DM (type 2 diabetes mellitus): Code(s): E11.9 - Type 2 diabetes mellitus without complications Status: Chronic Assessment and Plan: 10/17/2023: holding insulin 10/18/2023: * blood sugars ranging 339- 373 * Accu-Cheks AC and HS * hypoglycemia protocol in place * hemoglobin A1c ordered * high-dose sliding scale insulin ordered * Lantus 23 units ordered for tonight 10/19/23: * BG ranging 211-398 * Hgb A1C 11.0 Unsure if this is higher or lower than previous as we only have this result * Will increase Lantus to 27 units tonight (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 Assessment and Plan: 10/18/2023: * continue Protonix 10/19/23: * No change to current treatment plan (6) HTN (hypertension): Code(s): I10 - Essential (primary) hypertension Status: Acute Assessment and Plan: 10/18/2023: * blood pressure ranging 129/61 to 154/73 * continue with metoprolol 10/19/23: * No change to current treatment plan (7) Hyperlipidemia: Code(s): E78.5 - Hyperlipidemia, unspecified Status: Acute Assessment and Plan: 10/18/2023: * continue atorvastatin 10/19/23: * No change to current treatment plan (8) Urinary retention: Code(s): R33.9 - Retention of urine, unspecified Status: Acute Assessment and Plan: 10/19/23: * Patient was reported to to have 500 ml of urine on bladder scan this morning * The patient was straight cathed * Order placed for bladder scan every 8
--- NOTE | 2023-10-19 07:31 | PM.IMPN ---
Progress Note: A&P Assessment and Plan (1) Altered mental status: Code(s): R41.82 - Altered mental status, unspecified Status: Acute Assessment and Plan: 10/17/2023: likely secondary to polypharmacy holding all meds currently CT head reviewed supportive care continue to monitor 10/18/2023: CT of the head was negative for any acute findings continue neuro checks questionable polypharmacy versus advancing dementia 10/19/23: More alert today however he does not interact with me other than saying hi Patient did receive Haldol after being straight cathed today for urinary retention (2) Dementia: Code(s): F03.90 - Unspecified dementia, unspecified severity, without behavioral disturbance, psychotic disturbance, mood disturbance, and anxiety Status: Chronic Assessment and Plan: 10/17/2023: holding Namenda holding divalproex 10/18/2023: lives at a memory care facility with his continue Namenda and Depakote Haldol ordered p.r.n. q.6 for agitation 10/19/23: Continue with current treatment plan (3) Acute on chronic kidney failure: Qualifiers: Acute renal failure type: unspecified Chronic kidney disease stage: unspecified stage Qualified Code(s): N17.9 - Acute kidney failure, unspecified; N18.9 - Chronic kidney disease, unspecified Code(s): N17.9 - Acute kidney failure, unspecified; N18.9 - Chronic kidney disease, unspecified Status: Acute Assessment and Plan: 10/17/2023: likely to be pre renal azotemia gentle hydration continue to monitor BUN and creatinine 10/18/2023: BUN 74, creatinine 2.10, EGFR 31 patient does have history of chronic kidney disease stage 3 baseline creatinine appears to be 1.6-1.8 will hold Lasix due to ALEX 10/19/23: Creatinine down to 1.80 patient back to baseline (4) T2DM (type 2 diabetes mellitus): Code(s): E11.9 - Type 2 diabetes mellitus without complications Status: Chronic Assessment and Plan: 10/17/2023: holding insulin 10/18/2023: blood sugars ranging 339- 373 Accu-Cheks AC and HS hypoglycemia protocol in place hemoglobin A1c ordered high-dose sliding scale insulin ordered Lantus 23 units ordered for tonight 10/19/23: BG ranging 211-398 Hgb A1C 11.0 Unsure if this is higher or lower than previous as we only have this result Will increase Lantus to 27 units tonight (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 Assessment and Plan: 10/18/2023: continue Protonix 10/19/23: No change to current treatment plan (6) HTN (hypertension): Code(s): I10 - Essential (primary) hypertension Status: Acute Assessment and Plan: 10/18/2023: blood pressure ranging 129/61 to 154/73 continue with metoprolol 10/19/23: No change to current treatment plan (7) Hyperlipidemia: Code(s): E78.5 - Hyperlipidemia, unspecified Status: Acute Assessment and Plan: 10/18/2023: continue atorvastatin 10/19/23: No change to current treatment plan (8) Urinary retention: Code(s): R33.9 - Retention of urine, unspecified Status: Acute Assessment and Plan: 10/19/23: Patient was reported to to have 500 ml of urine on bladder scan this morning The patient was straight cathed Order placed for bladder scan every 8 hours to check urinary retention Order placed to straight cath for greater than 500 ml of urine in bladder Patient has underlying dementia and is not a candidate for catheter insertion as he will pull it out. Time Spent With Patient Time with patient: 25 - 35 minutes Subjective Date/time seen: 10/19/23 07:31 Interval history: 10/18/23: This is a 78-year-old male With a significant past medical history of anemia, anxiety, Stewart's esophagus, bronchitis, dementia, diabetes, DVT, erectile dysfunction, GERD, hy
[2023-10-19 07:36] LABS: Basophils Percent Auto 0.4 % (0.2-1.2); Eosinophils Absolute Auto 0.2 K/mm3 (0-0.3); Eosinophils Percent Auto 2.1 % (0-4.4); Hematocrit 35.7 % (42.0-52.0); Hemoglobin 11.5 g/dL (14.0-18.0); Immature Granulocyte Absolute 0.02 K/mm3 (0.00-0.031); Immature Granulocyte Percent A 0.3 % (0-0.5); Lymphocytes Absolute Auto 1.78 K/mm3 (0.9-3.2); Lymphocytes Percent Auto 25.3 % (18.3-44.2); Mean Corpuscular HGB Conc 32.2 g/dl (32-36); Mean Corpuscular Hemoglobin 32.7 pg (26-34); Mean Corpuscular Volume 101.4 fl (80-100); Monocytes Absolute Auto 0.6 K/mm3 (0.1-0.6); Monocytes Percent Auto 8.3 % (2.6-8.5); Neutrophils Absolute Auto 4.5 K/mm3 (1.3-6.7); Neutrophils Percent Auto 63.6 % (45.5-73.1); Platelet Count Result 170 k/mm3 (150-375); Red Blood Count 3.52 M/mm3 (4.6-6.20); Red Cell Distribution Width 14.6 % (11.5-14.5)
[2023-10-19 08:07] LABS: Alanine Aminotransferase 20 U/L (6-50); Alkaline Phosphatase 69 U/L (38-126); Anion Gap -1 mmol/L (4-12); Aspartate Amino Transferase 27 U/L (17-59); Bilirubin,Total 0.6 mg/dL (0.2-1.3); Blood Urea Nitrogen 48 mg/dL (9-20); Calcium 9.4 mg/dL (8.4-10.2); Carbon Dioxide 34 mmol/L (22-30); Chloride 111 mmol/L (98-107); Estimated CRCL calculation 29 ml/min; Estimated Glomerular Filt Rate 37; Glucose 209 mg/dL (65-110); Magnesium 2.4 mg/dL (1.6-2.3); Sodium 144 mmol/L (137-145)
--- NOTE | 2023-10-19 10:48 | PC.NURSE ---
Josefina Wolf notified of bladder scan 500.
[2023-10-19 11:09] LABS: Glucose Point of Care 194 mg/dl (65-105)
[2023-10-19] MEDS: HALOPERIDOL 5 MG TABLET PO ×2 (11:09→16:39)
[2023-10-19] MEDS: DIVALPROEX SODIUM SPRINKLE 125 MG CAP.DR 250 MG PO ×2 (11:10→16:33)
[2023-10-19] MEDS: APIXABAN 5 MG TABLET PO (11:10)
[2023-10-19] MEDS: TAMSULOSIN HCL 0.4 MG CAPSULE PO (11:11)
[2023-10-19] MEDS: MEMANTINE 5 MG TABLET PO (11:11)
[2023-10-19] MEDS: METOPROLOL SUCCINATE EXT REL 25 MG TABCR PO (11:11)
[2023-10-19] MEDS: FINASTERIDE 5 MG TABLET PO (11:11)
[2023-10-19 16:18] LABS: Glucose Point of Care 365 mg/dl (65-105)
[2023-10-19] MEDS: INSULIN ASPART (*BKC) 100 UNITS/ML SUB-Q (16:32)
[2023-10-19] MEDS: INSULIN GLARGINE (*BKC) 100 UNITS/ML 27 UNITS SUB-Q (20:40)
[2023-10-19] MEDS: OLANZapine 10 MG INJ VIAL 5 MG IM (21:17)
[2023-10-19] MEDS: OLANZapine 10 MG INJ VIAL IM (22:20)
[2023-10-19] MEDS: DEXTROSE 50% 25 GM/50 ML SYRINGE IV PUSH (23:47)
--- NOTE | 2023-10-19 23:55 | PC.NURSE ---
Patient's dexcom alerting, showing glucose of 62. Accu check done on hospital glucometer shows glucose 61. Patient unable to follow commands to take oral medications. PRN dextrose given IVP per orders.
[2023-10-20] MEDS: GLUCAGON FOR INJ 1 MG VIAL IM (01:56)
[2023-10-20 02:13] LABS: Glucose Point of Care 113 mg/dl (65-105)
[2023-10-20 02:13] LABS: Glucose Point of Care 188 mg/dl (65-105)
[2023-10-20 02:13] LABS: Glucose Point of Care 61 mg/dl (65-105)
[2023-10-20] MEDS: OLANZapine 10 MG INJ VIAL IM (05:19)
--- NOTE | 2023-10-20 05:20 | PC.NURSE ---
Patient extremely agitated and aggressive with staff. No able to redirect. Unsteady on feet. Started swinging at staff in room. Code esvin called.
[2023-10-20 06:00] VITALS: BP 114/73; PULSE 75; RESP 18; TEMP 36.2; O2SAT 100
[2023-10-20 08:47] LABS: Basophils Absolute Auto 0.1 K/mm3 (0.0-0.1); Basophils Percent Auto 0.4 % (0.2-1.2); Eosinophils Absolute Auto 0.2 K/mm3 (0-0.3); Eosinophils Percent Auto 1.7 % (0-4.4); Hematocrit 38.4 % (42.0-52.0); Hemoglobin 12.1 g/dL (14.0-18.0); Immature Granulocyte Absolute 0.05 K/mm3 (0.00-0.031); Immature Granulocyte Percent A 0.4 % (0-0.5); Lymphocytes Absolute Auto 1.88 K/mm3 (0.9-3.2); Lymphocytes Percent Auto 14.1 % (18.3-44.2); Mean Corpuscular HGB Conc 31.5 g/dl (32-36); Mean Corpuscular Hemoglobin 32.7 pg (26-34); Mean Corpuscular Volume 103.8 fl (80-100); Mean Platelet Volume 11.6 fl (7.4-10.4); Monocytes Percent Auto 7.4 % (2.6-8.5); Neutrophils Absolute Auto 10.1 K/mm3 (1.3-6.7); Platelet Count Result 173 k/mm3 (150-375); Red Cell Distribution Width 14.6 % (11.5-14.5); White Blood Count 13.3 K/mm3 (4.5-10.0)
[2023-10-20] MEDS: FINASTERIDE 5 MG TABLET PO (08:58)
[2023-10-20] MEDS: OLANZapine 5 MG TABLET PO (08:58)
[2023-10-20] MEDS: DIVALPROEX SODIUM SPRINKLE 125 MG CAP.DR 250 MG PO (08:59)
[2023-10-20] MEDS: METOPROLOL SUCCINATE EXT REL 25 MG TABCR PO (08:59)
[2023-10-20] MEDS: APIXABAN 5 MG TABLET PO (08:59)
[2023-10-20] MEDS: MEMANTINE 5 MG TABLET PO (08:59)
[2023-10-20] MEDS: TAMSULOSIN HCL 0.4 MG CAPSULE PO (09:00)
[2023-10-20 09:46] LABS: Alanine Aminotransferase 23 U/L (6-50); Albumin Level 3.4 g/dL (3.5-5.1); Alkaline Phosphatase 69 U/L (38-126); Anion Gap 3 mmol/L (4-12); Aspartate Amino Transferase 31 U/L (17-59); Bilirubin,Total 0.5 mg/dL (0.2-1.3); Blood Urea Nitrogen 36 mg/dL (9-20); Calcium 10.1 mg/dL (8.4-10.2); Carbon Dioxide 34 mmol/L (22-30); Chloride 112 mmol/L (98-107); Estimated CRCL calculation 29 ml/min; Estimated Glomerular Filt Rate 37; Glucose 126 mg/dL (65-110); Potassium 5.3 mmol/L (3.4-5.0); Sodium 149 mmol/L (137-145)
--- NOTE | 2023-10-20 09:52 | PM.IMPN ---
Progress Note: A&P Assessment and Plan (1) Urinary retention: Code(s): R33.9 - Retention of urine, unspecified Status: Acute (2) Hyperlipidemia: Code(s): E78.5 - Hyperlipidemia, unspecified Status: Acute (3) HTN (hypertension): Code(s): I10 - Essential (primary) hypertension Status: Acute (4) Altered mental status: Code(s): R41.82 - Altered mental status, unspecified Status: Acute (5) Dementia: Code(s): F03.90 - Unspecified dementia, unspecified severity, without behavioral disturbance, psychotic disturbance, mood disturbance, and anxiety Status: Chronic (6) Acute on chronic kidney failure: Qualifiers: Acute renal failure type: unspecified Chronic kidney disease stage: unspecified stage Qualified Code(s): N17.9 - Acute kidney failure, unspecified; N18.9 - Chronic kidney disease, unspecified Code(s): N17.9 - Acute kidney failure, unspecified; N18.9 - Chronic kidney disease, unspecified Status: Acute (7) T2DM (type 2 diabetes mellitus): Code(s): E11.9 - Type 2 diabetes mellitus without complications Status: Chronic Plan / (1) Altered mental status: Possible acute metabolic encephalopathy due to dehydration and polypharmacy ?Code(s): R41.82 - Altered mental status, unspecified ?Status:?Acute ?Assessment and Plan: ?10/17/2023: ?likely secondary to polypharmacy, and dehydration ?holding all meds currently ?CT head reviewed ?supportive care ?continue to monitor ?10/18/2023: ?CT of the head was negative for any acute findings ?continue neuro checks ?questionable polypharmacy versus advancing dementia 10/19/23: More alert today however he does not interact with me other than saying hi Patient did receive Haldol after being straight cathed today for urinary retention 10/19 patient is unresponsive, elevated BUN creatinine and hypernatremia Dehydration possible contributed worsening mental status Start D5 half normal saline IV 125 mL/hour (2) Dementia: ?Code(s): F03.90 - Unspecified dementia, unspecified severity, without behavioral disturbance, psychotic disturbance, mood disturbance, and anxiety ?Status:?Chronic ?Assessment and Plan: ? 10/17/2023: holding Namenda ?holding divalproex ?10/18/2023: ?lives at a memory care facility with his continue Namenda and Depakote ?Vika ordered p.r.n. q.6 for agitation 10/19/23: Continue with current treatment plan October 19 Patient has history of profound dementia, mental status deteriorates (3) Acute on chronic kidney failure: ?Qualifiers: ?Acute renal failure type:?unspecified??Chronic kidney disease stage:?unspecified stage? Qualified Code(s):?N17.9 - Acute kidney failure, unspecified; N18.9 - Chronic kidney disease, unspecified ?Code(s): N17.9 - Acute kidney failure, unspecified; N18.9 - Chronic kidney disease, unspecified ?Status:?Acute ?Assessment and Plan: ? 10/17/2023: likely to be pre renal azotemia ?gentle hydration ?continue to monitor BUN and creatinine ?10/18/2023: ?BUN 74, creatinine 2.10, EGFR 31 ?patient does have history of chronic kidney disease stage 3 ?baseline creatinine appears to be 1.6-1.8 ?will hold Lasix due to ALEX 10/19/23: Creatinine down to 1.80 patient back to baseline 10/19: Sodium 149, potassium 5.3, BUN 36, creatinine 1.8 Possible per in no and dehydration Start with D5 half normal saline 125 mL/hour Urinary retention Patient has history of penile implant, and patient was found urine retention since admission Abraham catheter was placed on admission, remove yesterday. And patient was found to have renal retention today Will place Abraham catheter back, consult urologist for evaluation treatment Follow-up urinalysis (4) T2DM (type 2 diabetes mellitus): ?Code(s): E11.9 - Type 2 diabetes mellitus without complications ?Status:?Chronic ?
[2023-10-20] MEDS: LORazepam INJ (*CRX) 2 MG/ML VIAL 1 MG IM (10:57)
[2023-10-20 11:42] LABS: Glucose Point of Care 130 mg/dl (65-105)
[2023-10-20 11:42] LABS: Glucose Point of Care 96 mg/dl (65-105)
[2023-10-20 11:42] LABS: Glucose Point of Care 70 mg/dl (65-105)
[2023-10-20 11:42] LABS: Glucose Point of Care 89 mg/dl (65-105)
[2023-10-20] MEDS: DEXTROSE 5%/0.45% SOD CHL 1,000 ML 125 ML IV CONT ×2 (13:02→20:35)
[2023-10-20] MEDS: DEXTROSE 50% 25 GM/50 ML SYRINGE IV PUSH (13:17)
[2023-10-20 14:00] VITALS: BP 112/61; PULSE 111; RESP 16; TEMP 36.1; O2SAT 96
[2023-10-20 16:36] LABS: Glucose Point of Care 58 mg/dl (65-105)
[2023-10-20 16:36] LABS: Glucose Point of Care 153 mg/dl (65-105)
[2023-10-20 16:36] LABS: Glucose Point of Care 169 mg/dl (65-105)
[2023-10-20 18:19] LABS: Appearance Urine Cloudy (Clear); Bacteria Urine 4+ /hpf; Bilirubin Urine Negative (Negative); Blood Urine 1+ (Negative); Color Urine Yellow (Yellow); Glucose Urine UA Negative (Negative); Ketones Urine Negative (Negative); Leukocyte Esterase Ur 2+ LEU/UL (Negative); Nitrate Urine Negative (Negative); Non Pathogenic Casts 0-2; Protein Urine 1+ mg/dL (Negative); Specific Grav Ur 1.013 (1.001-1.035); Squamous Epithelial Cell Urine None Seen /hpf (Few); Urobilinogen Urine 0.2 mg/dL (<2.0); WBC Urine 51-100 /hpf (0-3)
[2023-10-20 18:27] LABS: Add Urine Microscopic? YES
[2023-10-20] MEDS: INSULIN ASPART (*BKC) 100 UNITS/ML SUB-Q (20:44)
[2023-10-20 20:48] VITALS: BP 127/53; PULSE 60; RESP 16; TEMP 36.8; O2SAT 100
[2023-10-20 21:08] LABS: Glucose Point of Care 219 mg/dl (65-105)
[2023-10-21] MEDS: OLANZapine 5 MG, WATER, STERILE FOR INJECTION 2.1 ML IM (03:09)
[2023-10-21] MEDS: DEXTROSE 5%/0.45% SOD CHL 1,000 ML 125 ML IV CONT (03:16)
[2023-10-21 05:27] VITALS: RESP 20; TEMP 36.6
[2023-10-21 07:03] LABS: Basophils Percent Auto 0.4 % (0.2-1.2); Eosinophils Absolute Auto 0.2 K/mm3 (0-0.3); Eosinophils Percent Auto 2.3 % (0-4.4); Hematocrit 36.8 % (42.0-52.0); Hemoglobin 11.6 g/dL (14.0-18.0); Immature Granulocyte Absolute 0.03 K/mm3 (0.00-0.031); Immature Granulocyte Percent A 0.3 % (0-0.5); Lymphocytes Absolute Auto 1.86 K/mm3 (0.9-3.2); Lymphocytes Percent Auto 19.3 % (18.3-44.2); Mean Corpuscular HGB Conc 31.5 g/dl (32-36); Mean Corpuscular Hemoglobin 32.6 pg (26-34); Mean Corpuscular Volume 103.4 fl (80-100); Mean Platelet Volume 12.5 fl (7.4-10.4); Monocytes Absolute Auto 0.8 K/mm3 (0.1-0.6); Monocytes Percent Auto 8.7 % (2.6-8.5); Neutrophils Absolute Auto 6.7 K/mm3 (1.3-6.7); Platelet Count Result 168 k/mm3 (150-375); Red Blood Count 3.56 M/mm3 (4.6-6.20); Red Cell Distribution Width 14.6 % (11.5-14.5); White Blood Count 9.7 K/mm3 (4.5-10.0)
[2023-10-21 07:34] LABS: Alanine Aminotransferase 19 U/L (6-50); Alkaline Phosphatase 65 U/L (38-126); Anion Gap 3 mmol/L (4-12); Aspartate Amino Transferase 29 U/L (17-59); Bilirubin,Total 0.6 mg/dL (0.2-1.3); Blood Urea Nitrogen 25 mg/dL (9-20); Calcium 8.9 mg/dL (8.4-10.2); Carbon Dioxide 31 mmol/L (22-30); Chloride 109 mmol/L (98-107); Estimated CRCL calculation 33 ml/min; Estimated Glomerular Filt Rate 42; Glucose 229 mg/dL (65-110); Potassium 4.3 mmol/L (3.4-5.0); Sodium 143 mmol/L (137-145)
[2023-10-21 07:58] LABS: Glucose Point of Care 209 mg/dl (65-105)
[2023-10-21 08:52] VITALS: PULSE 60
[2023-10-21] MEDS: DIVALPROEX SODIUM SPRINKLE 125 MG CAP.DR 250 MG PO (08:52)
[2023-10-21] MEDS: METOPROLOL SUCCINATE EXT REL 25 MG TABCR PO (08:52)
[2023-10-21] MEDS: TAMSULOSIN HCL 0.4 MG CAPSULE PO (08:52)
[2023-10-21] MEDS: FINASTERIDE 5 MG TABLET PO (08:52)
[2023-10-21] MEDS: OLANZapine 5 MG TABLET PO (08:52)
[2023-10-21] MEDS: APIXABAN 5 MG TABLET PO (08:53)
[2023-10-21] MEDS: MEMANTINE 5 MG TABLET PO (08:53)
--- NOTE | 2023-10-21 10:38 | PCNFU ---
Nutrition Follow-Up Complete: Unintended weight loss related to loss of appetite/inadequate intake as evidenced by 9.7 kg/13% loss x 8 months. Goal:1. Patient to consume at least 50% x 2-3 meals & supplement daily. 2. Patient weight to remain at or above 65.3 kg through follow-up. Pt current nutrition is Diabetic, Glucerna shakes. Nutrition recommendation: continue to encourage po intake of meals and supplements, assist as needed Last recorded weight is 65.3 kg. Bowel Motility: +BM 10/19 Labs Reviewed: Hgb:11.6, HCT:36.8, Alb:3.0, BUN:25, Cr:1.6 Meds Noted: novolog, eliquis Skin: no skin issues noted Additional Notes: Pt diet advanced to a diabetic diet, glucerna shakes ordered, intake poor and minimal. Noted pt was not responsive yesterday, has been agitated when awake. Continue to encourage po intake when alert and oriented, assist as needed. Monitor diet advancement, PO intake/appetite, weight, labs. Follow up in 3 days
--- NOTE | 2023-10-21 10:38 | PM.IMPN ---
Progress Note: A&P Assessment and Plan (1) Urinary retention: Code(s): R33.9 - Retention of urine, unspecified Status: Acute (2) Hyperlipidemia: Code(s): E78.5 - Hyperlipidemia, unspecified Status: Acute (3) HTN (hypertension): Code(s): I10 - Essential (primary) hypertension Status: Acute (4) Altered mental status: Code(s): R41.82 - Altered mental status, unspecified Status: Acute (5) Dementia: Code(s): F03.90 - Unspecified dementia, unspecified severity, without behavioral disturbance, psychotic disturbance, mood disturbance, and anxiety Status: Chronic (6) Acute on chronic kidney failure: Qualifiers: Acute renal failure type: unspecified Chronic kidney disease stage: unspecified stage Qualified Code(s): N17.9 - Acute kidney failure, unspecified; N18.9 - Chronic kidney disease, unspecified Code(s): N17.9 - Acute kidney failure, unspecified; N18.9 - Chronic kidney disease, unspecified Status: Acute (7) T2DM (type 2 diabetes mellitus): Code(s): E11.9 - Type 2 diabetes mellitus without complications Status: Chronic Plan (1) Altered mental status: Possible acute metabolic encephalopathy due to dehydration and polypharmacy ?Code(s): R41.82 - Altered mental status, unspecified ?Status:?Acute ?Assessment and Plan: ?10/17/2023: ?likely secondary to polypharmacy, and dehydration ?holding all meds currently ?CT head reviewed ?supportive care ?continue to monitor ?10/18/2023: ?CT of the head was negative for any acute findings ?continue neuro checks ?questionable polypharmacy versus advancing dementia 10/19/23: More alert today however he does not interact with me other than saying hi Patient did receive Haldol after being straight cathed today for urinary retention 10/19 patient is unresponsive, elevated BUN creatinine and hypernatremia Dehydration possible contributed worsening mental status Start D5 half normal saline IV 125 mL/hour : Patient mental status improving, patient is awake, but still not oriented x3, unable to provide history, possible baseline (2) Dementia: ?Code(s): F03.90 - Unspecified dementia, unspecified severity, without behavioral disturbance, psychotic disturbance, mood disturbance, and anxiety ?Status:?Chronic ?Assessment and Plan: ? 10/17/2023: holding Namenda ?holding divalproex ?10/18/2023: ?lives at a memory care facility with his continue Namenda and Depakote ?Vika ordered p.r.n. q.6 for agitation 10/19/23: Continue with current treatment plan October 19 Patient has history of profound dementia, mental status deteriorated before admission (3) Acute on chronic kidney failure: ?Qualifiers: ?Acute renal failure type:?unspecified??Chronic kidney disease stage:?unspecified stage? Qualified Code(s):?N17.9 - Acute kidney failure, unspecified; N18.9 - Chronic kidney disease, unspecified ?Code(s): N17.9 - Acute kidney failure, unspecified; N18.9 - Chronic kidney disease, unspecified ?Status:?Acute ?Assessment and Plan: ? 10/17/2023: likely to be pre renal azotemia ?gentle hydration ?continue to monitor BUN and creatinine ?10/18/2023: ?BUN 74, creatinine 2.10, EGFR 31 ?patient does have history of chronic kidney disease stage 3 ?baseline creatinine appears to be 1.6-1.8 ?will hold Lasix due to ALEX 10/19/23: Creatinine down to 1.80 patient back to baseline 10/19: Sodium 149, potassium 5.3, BUN 36, creatinine 1.8 Possible per in no and dehydration Start with D5 half normal saline 125 mL/hour 10/20 sodium 143, BUN 25 creatinine 1.6, close to baseline Hold oral furosemide Urinary retention Patient has history of penile implant, and patient was found urine retention since admission Abraham catheter was placed on admission, removed nextnday. And patient was found to have renal retention place Abraham cathet
--- NOTE | 2023-10-21 11:59 | PM.DS ---
DS: Admitting Diagnosis Discharge Date 10/21/23 Admitting Diagnosis (1) Urinary retention: ?Code(s): R33.9 - Retention of urine, unspecified ?Status:?Acute (2) Hyperlipidemia: ?Code(s): E78.5 - Hyperlipidemia, unspecified ?Status:?Acute (3) HTN (hypertension): ?Code(s): I10 - Essential (primary) hypertension ?Status:?Acute (4) Altered mental status: ?Code(s): R41.82 - Altered mental status, unspecified ?Status:?Acute (5) Dementia: ?Code(s): F03.90 - Unspecified dementia, unspecified severity, without behavioral disturbance, psychotic disturbance, mood disturbance, and anxiety ?Status:?Chronic (6) Acute on chronic kidney failure: DS: Discharge Diagnosis Discharge Diagnosis (1) Urinary retention: Code(s): R33.9 - Retention of urine, unspecified Status: Acute (2) Hyperlipidemia: Code(s): E78.5 - Hyperlipidemia, unspecified Status: Acute (3) HTN (hypertension): Code(s): I10 - Essential (primary) hypertension Status: Acute (4) Altered mental status: Code(s): R41.82 - Altered mental status, unspecified Status: Acute (5) Dementia: Code(s): F03.90 - Unspecified dementia, unspecified severity, without behavioral disturbance, psychotic disturbance, mood disturbance, and anxiety Status: Chronic (6) Acute on chronic kidney failure: Qualifiers: Acute renal failure type: unspecified Chronic kidney disease stage: unspecified stage Qualified Code(s): N17.9 - Acute kidney failure, unspecified; N18.9 - Chronic kidney disease, unspecified Code(s): N17.9 - Acute kidney failure, unspecified; N18.9 - Chronic kidney disease, unspecified Status: Acute (7) T2DM (type 2 diabetes mellitus): Code(s): E11.9 - Type 2 diabetes mellitus without complications Status: Chronic DS: Summary Hospital Course Hospital Course: Per H&P,?this is a 78-year-old male with past medical history significant for dementia, chronic kidney disease, hypertension, benign prostatic hyperplasia? Deep venous thrombosis, pulmonary embolism on anticoagulation.? Patient was brought to the emergency room by his due to concerns for altered mental status patient has been lethargic poor per orally intake.? In emergency room patient was found to have a BUN in the 70s and a creatinine of 2.1 rest of the workup has been essentially nonrevealing.? Patient is been admitted for further evaluation management and treatment. The following med issues have been addressed during hospitalization (1) Altered mental status: Possible acute metabolic encephalopathy due to dehydration and polypharmacy ?Code(s): R41.82 - Altered mental status, unspecified ?Status:?Acute ?Assessment and Plan: ?10/17/2023: ?likely secondary to polypharmacy, and dehydration ?holding all meds currently ?CT head reviewed ?supportive care ?continue to monitor ?10/18/2023: ?CT of the head was negative for any acute findings ?continue neuro checks ?questionable polypharmacy versus advancing dementia 10/19/23: More alert today however he does not interact with me other than saying hi Patient did receive Haldol after being straight cathed today for urinary retention 10/19 patient is unresponsive, elevated BUN creatinine and hypernatremia Dehydration possible contributed worsening mental status Start D5 half normal saline IV 125 mL/hour : Patient mental status improving, patient is awake, but still not oriented x3, unable to provide history, possible baseline (2) Dementia: ?Code(s): F03.90 - Unspecified dementia, unspecified severity, without behavioral disturbance, psychotic disturbance, mood disturbance, and anxiety ?Status:?Chronic ?Assessment and Plan: ? 10/17/2023: holding Namenda ?holding divalproex ?10/18/2023: ?lives at a memory care facility with his continue Namenda and Depakote ?Haldol ordered
[2023-10-21 12:32] LABS: SARS-CoV-2 RNA PCR Negative (Negative)
[2023-10-21 12:36] LABS: Glucose Point of Care 105 mg/dl (65-105)
== END 2023-10-21 13:30 | disposition home health service (06) | DRG 71 ==
LOC: ANHED 20:44 → ANH3MEDSUR 23:11
PROVIDERS: Emergency Medicine; Nurse Practitioner Acute Care; Admitting Provider Internal Medicine; Emergency Provider Emergency Medicine; Visit Provider Hospitalist
DX: G93.41 Metabolic encephalopathy (principal); E87.0 Hyperosmolality and hypernatremia; E86.0 Dehydration; I12.9 Hypertensive chronic kidney disease with stage 1 through stage 4 chronic kidney disease, or unspecified chronic kidney disease; N18.30 Chronic kidney disease, stage 3 unspecified; E11.22 Type 2 diabetes mellitus with diabetic chronic kidney disease; E11.319 Type 2 diabetes mellitus with unspecified diabetic retinopathy without macular edema; D64.9 Anemia, unspecified; K58.9 Irritable bowel syndrome, unspecified; K21.9 Gastro-esophageal reflux disease without esophagitis; N40.1 Benign prostatic hyperplasia with lower urinary tract symptoms; R33.8 Other retention of urine; R41.82 Altered mental status, unspecified; F41.9 Anxiety disorder, unspecified; Z20.822 Contact with and (suspected) exposure to COVID-19; Z79.4 Long term (current) use of insulin; Z79.01 Long term (current) use of anticoagulants; Z86.718 Personal history of other venous thrombosis and embolism; Z86.711 Personal history of pulmonary embolism
CPT/HCPCS: 36415; 70450; 71045; 80053; 81001; 82948; 83036; 83735; 84443; 85025; 85610; 85730; 87040; 87635; 93005; 96372; 96374; 97161; 97165; 99285; A9270; J1610; J1630; J1815; J2060; J2359